=== PATIENT | male | born 1930 | race African-American/Black ===

== ENCOUNTER 2017-09-08 10:51 | Inpatient (IN) ==
[2017-09-08 13:25] LABS: Basophils # 0.1 10*3/uL (0.0-0.2); Basophils % 0.7 % (0.0-0.8); Eosinophils # 0.1 10*3/uL (0.0-0.87); Eosinophils % 0.7 % (0.00-10.9); Hematocrit 58.9 VOL% (42.0-52.0); Hemoglobin 19.7 GM/DL (14.0-18.0); Immature Granulocytes % 0.3 %; Immature Granulocytes Absolute 0.04 #; Lymphocytes % 14.3 % (21.2-54.2); Mean Corpuscular HGB Conc 33.4 GM/DL (32-36); Mean Corpuscular Hemoglobin 27 PG (27-34); Mean Corpuscular Volume 79.4 FL (87-102); Monocytes # 1.3 10*3/uL (0.11-0.8); Monocytes % 9.1 % (1.7-12.7); Neutrophils # 10.2 10*3/uL (1.4-7.4); Neutrophils % 74.9 % (38.7-73.9); Platelet Count 173 T/CUMM (130-400); Red Blood Count 7.42 MC/CUMM (3.8-5.5); Red Cell Distribution Width 18.8 % (9.3-17.3); White Blood Count 13.7 T/CUMM (4-12)
[2017-09-08 13:32] LABS: Apearance,Urine CLEAR (Clear); Bilirubin,Urine Negative (Negative); Blood, Urine Negative (Negative); Glucose,Urine (UA) Negative (Negative); Ketones,Urine Negative (Negative); Nitrite,Urine Negative (Negative); Protein,Urine Negative; RBC,Urine <1 /HPF (0-4); Urine Color Yellow (Yellow); Urine Specific Gravity 1.006 (1.001-1.035); Urine Urobilinogen < 2.0 EU/DL (0.2-1.0); WBC,Urine <1 /HPF (0-6)
[2017-09-08 14:53] LABS: PT Patient Result 81.1 SECS
[2017-09-08 14:54] LABS: INR 8.3
[2017-09-08 15:17] LABS: Albumin 3.2 G/DL (3.4-5.0); Calcium 9.2 MG/DL (8.5-10.1); Osmolality,Calculated 276.4 MOS/KG (273-304); Total Protein 7.6 G/DL (6.4-8.3)
[2017-09-08] MEDS ORDERED: SODIUM CHLORIDE 0.9% 1,000 ML IV SCH ×2 (16:41→20:00)
[2017-09-08] MEDS ORDERED: ONDANSETRON 4 MG/2 ML VIAL IV PRN (16:41)
[2017-09-08] MEDS ORDERED: SODIUM CHLORIDE 0.9% 500 ML IV ONE (16:41)
[2017-09-08] MEDS ORDERED: BISACODYL 5 MG TABLET PO PRN (16:41)
[2017-09-08] MEDS ORDERED: LACTULOSE 20 GM/30 ML UDCUP PO PRN (16:41)
[2017-09-08] MEDS ORDERED: ACETAMINOPHEN 325 MG TABLET PO PRN (16:41)
[2017-09-08] MEDS ORDERED: PHYTONADIONE 10 MG/1 ML AMP SUBCUT ONE (18:00)
[2017-09-08] MEDS: VANCOMYCIN INJ 1,250 MG in SODIUM CHLORIDE 0.45% 250 ML IV SCH (18:02)
[2017-09-08 18:23] LABS: Lactic Acid 2.2 MMOL/L (0.4-2.0)
[2017-09-08 18:29] LABS: Magnesium 1.8 MG/DL (1.8-2.4); Thyroid Stimulating Hormone 0.697 uIU/ml (0.358-3.74)
[2017-09-08] MEDS ORDERED: SODIUM CHLORIDE 0.9% 1,000 ML IV ONE (19:00)
[2017-09-08] MEDS ORDERED: MAGNESIUM SULF RIDER 2 GM in PREMIX 1 EACH IV ONE (19:08)
[2017-09-08] MEDS: PIPERACILLIN/TAZOBACTAM 3,375 MG in SODIUM CHLORIDE 0.9% 100 ML IV SCH (20:45)
[2017-09-08] MEDS: METOPROLOL SUCCINATE XL 50 MG TABLET PO SCH (20:45)
[2017-09-09] MEDS: PIPERACILLIN/TAZOBACTAM 3,375 MG in SODIUM CHLORIDE 0.9% 100 ML IV SCH ×3 (01:58→20:26)
[2017-09-09 03:20] LABS: Basophils # 0.1 10*3/uL (0.0-0.2); Basophils % 0.4 % (0.0-0.8); Eosinophils # 0.2 10*3/uL (0.0-0.87); Eosinophils % 1.3 % (0.00-10.9); Hematocrit 52.1 VOL% (42.0-52.0); Hemoglobin 17.1 GM/DL (14.0-18.0); Immature Granulocytes % 0.4 %; Immature Granulocytes Absolute 0.06 #; Lymphocytes % 13.9 % (21.2-54.2); Mean Corpuscular HGB Conc 32.8 GM/DL (32-36); Mean Corpuscular Hemoglobin 26 PG (27-34); Mean Corpuscular Volume 79.4 FL (87-102); Mean Platelet Volume 10.8 FL (9.6-12.0); Monocytes # 1.4 10*3/uL (0.11-0.8); Neutrophils # 10.4 10*3/uL (1.4-7.4); Platelet Count 212 T/CUMM (130-400); Red Blood Count 6.56 MC/CUMM (3.8-5.5); Red Cell Distribution Width 18.1 % (9.3-17.3); White Blood Count 14.1 T/CUMM (4-12)
[2017-09-09 03:49] LABS: PT Patient Result 54.2 SECS
[2017-09-09 03:50] LABS: INR 5.5
[2017-09-09 04:02] LABS: Calcium 8.5 MG/DL (8.5-10.1); Osmolality,Calculated 278.4 MOS/KG (273-304); Potassium 3.5 MMOL/L (3.5-5.1); Risk Ratio 3.27; VLDL CHOLESTEROL 18.4 MG/DL
[2017-09-09] MEDS: VANCOMYCIN INJ 1,250 MG in SODIUM CHLORIDE 0.45% 250 ML IV SCH ×2 (05:48→17:30)
[2017-09-09] MEDS: METOPROLOL SUCCINATE XL 50 MG TABLET PO SCH (09:33)
[2017-09-09] MEDS: PANTOPRAZOLE 40 MG TABLET PO SCH (09:33)
[2017-09-09] MEDS: ALBUTEROL/IPRATROPIUM 3 ML NEB RESP TX SCH ×4 (10:50→23:47)
[2017-09-09] MEDS: methylPREDNISolone SOD SUC 40 MG/1 ML VIAL IV SCH ×3 (10:54→21:05)
[2017-09-09] MEDS: DIGOXIN 0.125 MG TABLET PO SCH (14:08)
[2017-09-09] MEDS: SKIN HEALING OINT (AQUAPHOR) 50 GM TUBE TOP PRN (15:32)
[2017-09-10] MEDS: PIPERACILLIN/TAZOBACTAM 3,375 MG in SODIUM CHLORIDE 0.9% 100 ML IV SCH ×3 (02:21→18:08)
[2017-09-10] MEDS: ALBUTEROL/IPRATROPIUM 3 ML NEB RESP TX SCH ×6 (03:47→23:21)
[2017-09-10] MEDS: methylPREDNISolone SOD SUC 40 MG/1 ML VIAL IV SCH ×4 (04:56→21:48)
[2017-09-10] MEDS: VANCOMYCIN INJ 1,250 MG in SODIUM CHLORIDE 0.45% 250 ML IV SCH ×2 (06:12→21:48)
[2017-09-10 06:28] LABS: Basophils % 0.1 % (0.0-0.8); Hematocrit 51.5 VOL% (42.0-52.0); Hemoglobin 17.5 GM/DL (14.0-18.0); Immature Granulocytes % 0.7 %; Immature Granulocytes Absolute 0.13 #; Lymphocytes # 0.8 10*3/uL (1.4-4.0); Lymphocytes % 4.2 % (21.2-54.2); Mean Corpuscular Hemoglobin 27 PG (27-34); Mean Corpuscular Volume 79.1 FL (87-102); Mean Platelet Volume 10.7 FL (9.6-12.0); Monocytes # 0.5 10*3/uL (0.11-0.8); Monocytes % 2.7 % (1.7-12.7); Neutrophils # 17.5 10*3/uL (1.4-7.4); Neutrophils % 92.3 % (38.7-73.9); Platelet Count 214 T/CUMM (130-400); Red Blood Count 6.51 MC/CUMM (3.8-5.5); Red Cell Distribution Width 18.3 % (9.3-17.3)
[2017-09-10 06:29] LABS: INR 1.7; PT Patient Result 17.2 SECS
[2017-09-10 06:43] LABS: Osmolality,Calculated 281.4 MOS/KG (273-304); Potassium 3.9 MMOL/L (3.5-5.1)
[2017-09-10 07:44] LABS: Lymphocytes 4 % (20-55); Platelet Estimate Adequate; Segmented Neutrophils 91 % (50-85); Total Cells Counted 100
[2017-09-10] MEDS: PANTOPRAZOLE 40 MG TABLET PO SCH (08:38)
[2017-09-10] MEDS: METOPROLOL SUCCINATE XL 50 MG TABLET PO SCH (08:38)
[2017-09-10] MEDS: SKIN HEALING OINT (AQUAPHOR) 50 GM TUBE TOP PRN (10:04)
[2017-09-10] MEDS: DIGOXIN 0.125 MG TABLET PO SCH (14:18)
[2017-09-10] MEDS ORDERED: ENOXAPARIN 40 MG/0.4 ML SYRINGE SUBCUT SCH (15:00)
[2017-09-10] MEDS: ENOXAPARIN 100 MG/ML SYRINGE SUBCUT SCH (16:39)
[2017-09-11] MEDS: PIPERACILLIN/TAZOBACTAM 3,375 MG in SODIUM CHLORIDE 0.9% 100 ML IV SCH ×2 (02:23→11:46)
[2017-09-11] MEDS: ALBUTEROL/IPRATROPIUM 3 ML NEB RESP TX SCH ×5 (02:34→19:44)
[2017-09-11] MEDS: methylPREDNISolone SOD SUC 40 MG/1 ML VIAL IV SCH ×4 (03:46→21:57)
[2017-09-11 06:53] LABS: Basophils % 0.2 % (0.0-0.8); Hematocrit 50.3 VOL% (42.0-52.0); Hemoglobin 16.9 GM/DL (14.0-18.0); Immature Granulocytes % 0.7 %; Immature Granulocytes Absolute 0.16 #; Lymphocytes # 0.9 10*3/uL (1.4-4.0); Lymphocytes % 3.9 % (21.2-54.2); Mean Corpuscular HGB Conc 33.6 GM/DL (32-36); Mean Corpuscular Hemoglobin 27 PG (27-34); Mean Corpuscular Volume 79.2 FL (87-102); Mean Platelet Volume 10.6 FL (9.6-12.0); Monocytes # 0.8 10*3/uL (0.11-0.8); Monocytes % 3.6 % (1.7-12.7); Neutrophils % 91.6 % (38.7-73.9); Platelet Count 219 T/CUMM (130-400); Red Blood Count 6.35 MC/CUMM (3.8-5.5); Red Cell Distribution Width 18.2 % (9.3-17.3); White Blood Count 21.9 T/CUMM (4-12)
[2017-09-11 07:00] LABS: INR 1.4; PT Patient Result 14.2 SECS
[2017-09-11 07:18] LABS: Giant Platelets Few; Hypochromasia 1+; Lymphocytes 2 % (20-55); Platelet Estimate Adequate; Segmented Neutrophils 96 % (50-85); Total Cells Counted 100
[2017-09-11 07:24] LABS: Calcium 9.1 MG/DL (8.5-10.1); Osmolality,Calculated 280.4 MOS/KG (273-304); Potassium 4.1 MMOL/L (3.5-5.1)
[2017-09-11] MEDS: METOPROLOL SUCCINATE XL 50 MG TABLET PO SCH (09:13)
[2017-09-11] MEDS: PANTOPRAZOLE 40 MG TABLET PO SCH (09:13)
[2017-09-11] MEDS: VANCOMYCIN INJ 1,250 MG in SODIUM CHLORIDE 0.45% 250 ML IV SCH (09:17)
[2017-09-11] MEDS ORDERED: CLINDAMYCIN INJ 900 MG in PREMIX 1 EACH IV ONE (09:19)
[2017-09-11] MEDS: DIGOXIN 0.125 MG TABLET PO SCH (13:34)
[2017-09-11] MEDS ORDERED: BUPIVACAINE 0.25% 50 ML VIAL ONE (14:51)
[2017-09-11] MEDS: ENOXAPARIN 100 MG/ML SYRINGE SUBCUT SCH (15:30)
[2017-09-11] MEDS ORDERED: PHENYLEPHRINE 1 MG/10 ML SYRINGE IV ONE (16:25)
[2017-09-11] MEDS ORDERED: ONDANSETRON 4 MG/2 ML VIAL ONE (16:25)
[2017-09-11] MEDS ORDERED: PROPOFOL 200 MG/20 ML VIAL IV ONE (16:25)
[2017-09-11] MEDS ORDERED: LIDOCAINE 1% 5 ML VIAL ONE (16:25)
[2017-09-11] MEDS ORDERED: SEVOFLURANE 1 UNIT/15 MINUTE INH ONE (17:15)
[2017-09-11] MEDS ORDERED: fentaNYL 100 MCG/2 ML VIAL ONE (17:16)
[2017-09-11] MEDS ORDERED: MIDAZOLAM 2 MG/2 ML VIAL ONE (17:16)
[2017-09-11] MEDS: AMPICILLIN INJ 1,000 MG in SODIUM CHLORIDE 0.9% 50 ML IV SCH ×2 (18:20→21:59)
[2017-09-12] MEDS: ALBUTEROL/IPRATROPIUM 3 ML NEB RESP TX SCH ×7 (00:02→23:20)
[2017-09-12] MEDS: methylPREDNISolone SOD SUC 40 MG/1 ML VIAL IV SCH ×4 (04:02→22:15)
[2017-09-12] MEDS: AMPICILLIN INJ 1,000 MG in SODIUM CHLORIDE 0.9% 50 ML IV SCH ×4 (04:03→22:25)
[2017-09-12 07:47] LABS: Basophils % 0.1 % (0.0-0.8); Hematocrit 53.7 VOL% (42.0-52.0); Hemoglobin 17.7 GM/DL (14.0-18.0); Immature Granulocytes % 0.7 %; Immature Granulocytes Absolute 0.12 #; Lymphocytes # 0.7 10*3/uL (1.4-4.0); Mean Corpuscular Hemoglobin 26 PG (27-34); Mean Corpuscular Volume 79.7 FL (87-102); Mean Platelet Volume 10.3 FL (9.6-12.0); Monocytes % 5.3 % (1.7-12.7); Neutrophils # 16.3 10*3/uL (1.4-7.4); Neutrophils % 89.9 % (38.7-73.9); Platelet Count 244 T/CUMM (130-400); Red Blood Count 6.74 MC/CUMM (3.8-5.5); Red Cell Distribution Width 18.7 % (9.3-17.3); White Blood Count 18.1 T/CUMM (4-12)
[2017-09-12 08:07] LABS: Calcium 8.9 MG/DL (8.5-10.1); Magnesium 2.3 MG/DL (1.8-2.4); Osmolality,Calculated 276.7 MOS/KG (273-304); Potassium 4.4 MMOL/L (3.5-5.1)
[2017-09-12 08:12] LABS: Hypochromasia 1+; Lymphocytes 4 % (20-55); Microcytosis 1+; Platelet Estimate Normal; Segmented Neutrophils 89 % (50-85); Total Cells Counted 100
[2017-09-12 08:42] LABS: INR 1.4; PT Patient Result 14.1 SECS
[2017-09-12] MEDS: METOPROLOL SUCCINATE XL 50 MG TABLET PO SCH (09:28)
[2017-09-12] MEDS: PANTOPRAZOLE 40 MG TABLET PO SCH (09:28)
[2017-09-12] MEDS: DIGOXIN 0.125 MG TABLET PO SCH (13:04)
[2017-09-12] MEDS: ENOXAPARIN 100 MG/ML SYRINGE SUBCUT SCH (15:34)
[2017-09-13] MEDS: ALBUTEROL/IPRATROPIUM 3 ML NEB RESP TX SCH ×6 (03:20→23:18)
[2017-09-13] MEDS: methylPREDNISolone SOD SUC 40 MG/1 ML VIAL IV SCH ×3 (04:45→23:37)
[2017-09-13] MEDS: AMPICILLIN INJ 1,000 MG in SODIUM CHLORIDE 0.9% 50 ML IV SCH (04:48)
[2017-09-13] MEDS: METOPROLOL SUCCINATE XL 50 MG TABLET PO SCH (08:59)
[2017-09-13] MEDS ORDERED: fentaNYL 100 MCG/2 ML VIAL IV ONE (11:03)
[2017-09-13] MEDS ORDERED: MIDAZOLAM 2 MG/2 ML VIAL IV ONE (11:03)
[2017-09-13] MEDS ORDERED: HEPARIN 5,000 UNIT/1 ML VIAL IV ONE (11:03)
[2017-09-13] MEDS: PANTOPRAZOLE 40 MG TABLET PO SCH (11:37)
[2017-09-13] MEDS: DIGOXIN 0.125 MG TABLET PO SCH (12:54)
[2017-09-13] MEDS: ENOXAPARIN 100 MG/ML SYRINGE SUBCUT SCH (15:33)
[2017-09-14] MEDS: ALBUTEROL/IPRATROPIUM 3 ML NEB RESP TX SCH ×5 (02:50→20:06)
[2017-09-14] MEDS: METOPROLOL SUCCINATE XL 50 MG TABLET PO SCH (09:06)
[2017-09-14] MEDS: PANTOPRAZOLE 40 MG TABLET PO SCH (09:06)
[2017-09-14] MEDS ORDERED: HEPARIN/NACL 0.9% 2 UNITS/ML 3,000 ML IV ONE (10:12)
[2017-09-14] MEDS ORDERED: fentaNYL 100 MCG/2 ML VIAL ONE (10:13)
[2017-09-14] MEDS ORDERED: MIDAZOLAM 2 MG/2 ML VIAL ONE (10:13)
[2017-09-14] MEDS ORDERED: HEPARIN 5,000 UNIT/1 ML VIAL ONE (10:23)
[2017-09-14] MEDS: DIGOXIN 0.125 MG TABLET PO SCH (13:23)
[2017-09-14] MEDS: methylPREDNISolone SOD SUC 40 MG/1 ML VIAL IV SCH (13:23)
[2017-09-14] MEDS: ENOXAPARIN 100 MG/ML SYRINGE SUBCUT SCH (16:22)
[2017-09-15] MEDS: ALBUTEROL/IPRATROPIUM 3 ML NEB RESP TX SCH ×3 (01:02→07:50)
[2017-09-15 07:12] LABS: Calcium 8.5 MG/DL (8.5-10.1); Magnesium 2.1 MG/DL (1.8-2.4); Osmolality,Calculated 277.4 MOS/KG (273-304); Potassium 3.6 MMOL/L (3.5-5.1)
[2017-09-15] MEDS ORDERED: methylPREDNISolone SOD SUC 40 MG/1 ML VIAL IV SCH (09:00)
[2017-09-15] MEDS: METOPROLOL SUCCINATE XL 50 MG TABLET PO SCH (09:09)
[2017-09-15] MEDS: PANTOPRAZOLE 40 MG TABLET PO SCH (09:09)
[2017-09-15 09:24] LABS: Basophils % 0.2 % (0.0-0.8); Eosinophils # 0.3 10*3/uL (0.0-0.87); Eosinophils % 1.7 % (0.00-10.9); Immature Granulocytes % 0.7 %; Immature Granulocytes Absolute 0.14 #; Lymphocytes # 1.9 10*3/uL (1.4-4.0); Lymphocytes % 9.9 % (21.2-54.2); Mean Corpuscular HGB Conc 33.3 GM/DL (32-36); Mean Corpuscular Hemoglobin 26 PG (27-34); Mean Corpuscular Volume 78.9 FL (87-102); Mean Platelet Volume 11.4 FL (9.6-12.0); Monocytes # 1.5 10*3/uL (0.11-0.8); Monocytes % 7.8 % (1.7-12.7); NRBC # 0.02 10*3/uL; Neutrophils # 15.4 10*3/uL (1.4-7.4); Neutrophils % 79.7 % (38.7-73.9); Platelet Count 177 T/CUMM (130-400); Red Blood Count 6.08 MC/CUMM (3.8-5.5); White Blood Count 19.3 T/CUMM (4-12)
[2017-09-15 11:12] VITALS: BP 145/77
== END 2017-09-15 12:45 | disposition home health service (06) | DRG 855 ==
LOC: N.ED 10:51 → N.EDINP 15:01 → SUATTDRO 15:01 → N.3E 16:30
PROVIDERS: ADMIT Internal Medicine; ATTEND Internal Medicine

== ENCOUNTER 2017-10-08 16:46 | Inpatient (IN) ==
[2017-10-08] MEDS ORDERED: SODIUM CHLORIDE 0.9% 500 ML IV STA (17:17)
[2017-10-08] MEDS ORDERED: ASPIRIN 325 MG TABLET PO STA (17:17)
[2017-10-08] MEDS ORDERED: CLINDAMYCIN INJ 900 MG in PREMIX 1 EACH IV STA (17:17)
[2017-10-08] MEDS ORDERED: CLINDAMYCIN INJ 50 ML IV ONE (18:20)
[2017-10-08 18:28] LABS: Basophils # 0.1 10*3/uL (0.0-0.2); Basophils % 0.2 % (0.0-0.8); Eosinophils % 0.1 % (0.00-10.9); Hematocrit 42.6 VOL% (42.0-52.0); Hemoglobin 14.1 GM/DL (14.0-18.0); Lymphocytes # 0.7 10*3/uL (1.4-4.0); Mean Corpuscular HGB Conc 33.1 GM/DL (32-36); Mean Corpuscular Hemoglobin 27 PG (27-34); Mean Corpuscular Volume 81.1 FL (87-102); Mean Platelet Volume 10.1 FL (9.6-12.0); Monocytes # 0.7 10*3/uL (0.11-0.8); Monocytes % 2.9 % (1.7-12.7); NRBC # 0.02 10*3/uL; Neutrophils # 22.6 10*3/uL (1.4-7.4); Neutrophils % 91.8 % (38.7-73.9); Platelet Count 259 T/CUMM (130-400); Red Blood Count 5.25 MC/CUMM (3.8-5.5); Red Cell Distribution Width 18.6 % (9.3-17.3); White Blood Count 24.6 T/CUMM (4-12)
[2017-10-08 18:50] LABS: PT Patient Result 68.3 SECS; Partial Thromboplastin Time 43.6 SECS (0-40)
[2017-10-08 18:51] LABS: INR 6.9
[2017-10-08 19:01] LABS: Band Neutrophils 6 % (0-10); Lymphocytes 4 % (20-55); Segmented Neutrophils 89 % (50-85); Total Cells Counted 100
[2017-10-08 19:02] LABS: Platelet Estimate Normal
[2017-10-08 19:03] LABS: Alanine Aminotransferase 19 U/L (16-61); Albumin 2.7 G/DL (3.4-5.0); Alkaline Phosphatase 139 U/L (45-117); Aspartate Amino Transferase 46 U/L (0-37); Blood Urea Nitrogen 11 MG/DL (7-18); Calcium 8.2 MG/DL (8.5-10.1); Glucose 77 MG/DL (74-106); Osmolality,Calculated 274.5 MOS/KG (273-304); Potassium 3.3 MMOL/L (3.5-5.1); Sodium 139 MMOL/L (136-145)
[2017-10-08 19:04] LABS: Troponin I Only 0.178 NG/ML (0.00-0.045)
[2017-10-08 20:18] LABS: Apearance,Urine CLEAR (Clear); Bilirubin,Urine Negative (Negative); Blood, Urine Moderate mg/dL (Negative); Glucose,Urine (UA) Negative (Negative); Ketones,Urine Negative (Negative); Mucus,Urine Occasional /LPF (Occasional); Nitrite,Urine Negative (Negative); Protein,Urine 100 MG/DL; RBC,Urine 6 /HPF (0-4); Squamous Epithelial Cell,Urine Occasional /HPF (0-10); Urine Color Yellow (Yellow); Urine Specific Gravity 1.012 (1.001-1.035); WBC,Urine 4 /HPF (0-6)
[2017-10-08 20:24] LABS: Barbiturates Screen,Urine Negative (Negative); Benzodiazepines Screen,Urine Negative (Negative); Cannabinoid Screen,Urine Negative (Negative); Opiate Screen,Urine Negative (Negative); Phencyclidine Screen,Urine Negative (Negative)
[2017-10-08] MEDS ORDERED: ALBUTEROL 2.5 MG/3 ML NEB RESP TX ONE (22:42)
[2017-10-08] MEDS ORDERED: NICOTINE 21 MG/24 HR PATCH TRANSDERM PRN (22:42)
[2017-10-08] MEDS ORDERED: ONDANSETRON 4 MG/2 ML VIAL IV PRN (22:42)
[2017-10-08] MEDS ORDERED: POTASSIUM CHLORIDE 20 MEQ TABLET PO ONE (22:42)
[2017-10-08] MEDS ORDERED: methylPREDNISolone SOD SUC 125 MG/2 ML VIAL IV ONE (22:42)
[2017-10-08] MEDS ORDERED: ALBUTEROL 2.5 MG/3 ML NEB RESP TX PRN (22:42)
[2017-10-08] MEDS: LEVOFLOXACIN INJ 750 MG in PREMIX 1 EACH IV SCH (23:51)
[2017-10-08] MEDS: SODIUM CHLORIDE 0.9% 1,000 ML IV SCH (23:51)
[2017-10-08 23:59] LABS: Magnesium 1.6 MG/DL (1.8-2.4); Risk Ratio 2.76; VLDL CHOLESTEROL 21.2 MG/DL
[2017-10-09] MEDS: ALBUTEROL 2.5 MG/3 ML NEB RESP TX SCH ×6 (00:43→20:20)
[2017-10-09] MEDS: methylPREDNISolone SOD SUC 40 MG/1 ML VIAL IV SCH ×4 (05:07→22:00)
[2017-10-09 07:45] LABS: PT Patient Result 62.2 SECS
[2017-10-09 07:47] LABS: INR 6.3
[2017-10-09 07:57] LABS: Calcium 8.4 MG/DL (8.5-10.1); Osmolality,Calculated 276.5 MOS/KG (273-304); Potassium 3.9 MMOL/L (3.5-5.1)
[2017-10-09] MEDS ORDERED: PANTOPRAZOLE 40 MG VIAL IV SCH (09:00)
[2017-10-09] MEDS: VANCOMYCIN INJ 1,500 MG in SODIUM CHLORIDE 0.9% 500 ML IV SCH ×2 (09:41→21:20)
[2017-10-09] MEDS: CLORAZEPATE 7.5 MG TABLET PO PRN ×2 (09:48→21:20)
[2017-10-09 11:40] LABS: Troponin I Only 0.119 NG/ML (0.00-0.045)
[2017-10-09] MEDS ORDERED: PROPOFOL 200 MG/20 ML VIAL IV ONE (14:07)
[2017-10-09] MEDS ORDERED: MIDAZOLAM 2 MG/2 ML VIAL ONE (14:07)
[2017-10-09] MEDS ORDERED: SODIUM CHLORIDE 0.9% 100 ML IV ONE (14:08)
[2017-10-09] MEDS ORDERED: KETAMINE 500 MG/10 ML VIAL ONE (14:08)
[2017-10-09] MEDS ORDERED: PHYTONADIONE 10 MG/1 ML AMP IV ONE (19:04)
[2017-10-09] MEDS: SODIUM CHLORIDE 0.9% 1,000 ML IV SCH ×2 (19:24→21:18)
[2017-10-09] MEDS ORDERED: PHYTONADIONE INJ 10 MG in SODIUM CHLORIDE 0.9% 50 ML IV ONE (19:30)
[2017-10-09] MEDS: MORPHINE 2 MG/1 ML SYRINGE IV PRN (22:01)
[2017-10-10 00:56] LABS: Basophils % 0.1 % (0.0-0.8); Hematocrit 35.9 VOL% (42.0-52.0); Hemoglobin 11.7 GM/DL (14.0-18.0); Immature Granulocytes % 1.6 %; Immature Granulocytes Absolute 0.45 #; Lymphocytes # 1.2 10*3/uL (1.4-4.0); Lymphocytes % 4.3 % (21.2-54.2); Mean Corpuscular HGB Conc 32.6 GM/DL (32-36); Mean Corpuscular Hemoglobin 26 PG (27-34); Mean Corpuscular Volume 80.9 FL (87-102); Mean Platelet Volume 10.7 FL (9.6-12.0); Monocytes # 1.5 10*3/uL (0.11-0.8); Monocytes % 5.4 % (1.7-12.7); NRBC # 0.02 10*3/uL; Neutrophils # 25.1 10*3/uL (1.4-7.4); Neutrophils % 88.6 % (38.7-73.9); Platelet Count 259 T/CUMM (130-400); Red Blood Count 4.44 MC/CUMM (3.8-5.5); Red Cell Distribution Width 18.5 % (9.3-17.3); White Blood Count 28.4 T/CUMM (4-12)
[2017-10-10 01:06] LABS: Calcium 8.2 MG/DL (8.5-10.1); Magnesium 1.7 MG/DL (1.8-2.4); Osmolality,Calculated 281.4 MOS/KG (273-304); Potassium 3.6 MMOL/L (3.5-5.1)
[2017-10-10 01:15] LABS: Calcium 8.4 MG/DL (8.5-10.1); Osmolality,Calculated 279.5 MOS/KG (273-304); Potassium 3.6 MMOL/L (3.5-5.1)
[2017-10-10] MEDS: LEVOFLOXACIN INJ 750 MG in PREMIX 1 EACH IV SCH (01:26)
[2017-10-10] MEDS: ALBUTEROL 2.5 MG/3 ML NEB RESP TX SCH ×7 (01:28→23:38)
[2017-10-10 01:45] LABS: Partial Thromboplastin Time 33.6 SECS (0-40)
[2017-10-10 01:50] LABS: INR 2.2; PT Patient Result 22.6 SECS
[2017-10-10 02:04] LABS: Band Neutrophils 1 % (0-10); Lymphocytes 4 % (20-55); Platelet Estimate Adequate; Segmented Neutrophils 92 % (50-85); Total Cells Counted 100
[2017-10-10 02:05] LABS: Target Cells Slight
[2017-10-10] MEDS: methylPREDNISolone SOD SUC 40 MG/1 ML VIAL IV SCH ×4 (05:24→16:12)
[2017-10-10] MEDS: VANCOMYCIN INJ 1,500 MG in SODIUM CHLORIDE 0.9% 500 ML IV SCH (09:20)
[2017-10-10] MEDS ORDERED: PHYTONADIONE 10 MG/1 ML AMP IV ONE (11:09)
[2017-10-10] MEDS: PIPERACILLIN/TAZOBACTAM 3,375 MG in SODIUM CHLORIDE 0.9% 100 ML IV SCH (16:12)
[2017-10-11] MEDS: methylPREDNISolone SOD SUC 40 MG/1 ML VIAL IV SCH ×3 (00:18→11:24)
[2017-10-11] MEDS: SODIUM CHLORIDE 0.9% 1,000 ML IV SCH ×3 (00:19→11:31)
[2017-10-11] MEDS: VANCOMYCIN INJ 1,500 MG in SODIUM CHLORIDE 0.9% 500 ML IV SCH ×2 (02:13→15:13)
[2017-10-11] MEDS: MORPHINE 2 MG/1 ML SYRINGE IV PRN ×2 (02:13→09:24)
[2017-10-11] MEDS: ALBUTEROL 2.5 MG/3 ML NEB RESP TX SCH ×3 (04:05→11:16)
[2017-10-11] MEDS: PIPERACILLIN/TAZOBACTAM 3,375 MG in SODIUM CHLORIDE 0.9% 100 ML IV SCH ×2 (04:59→13:41)
[2017-10-11 07:10] LABS: Basophils % 0.1 % (0.0-0.8); Hematocrit 33.6 VOL% (42.0-52.0); Immature Granulocytes % 1.2 %; Immature Granulocytes Absolute 0.25 #; Lymphocytes # 1.8 10*3/uL (1.4-4.0); Lymphocytes % 8.3 % (21.2-54.2); Mean Corpuscular HGB Conc 32.7 GM/DL (32-36); Mean Corpuscular Hemoglobin 27 PG (27-34); Mean Corpuscular Volume 81.2 FL (87-102); Mean Platelet Volume 10.7 FL (9.6-12.0); Monocytes # 2.3 10*3/uL (0.11-0.8); Monocytes % 10.6 % (1.7-12.7); NRBC # 0.04 10*3/uL; Neutrophils # 17.1 10*3/uL (1.4-7.4); Neutrophils % 79.8 % (38.7-73.9); Platelet Count 230 T/CUMM (130-400); Red Blood Count 4.14 MC/CUMM (3.8-5.5); Red Cell Distribution Width 18.3 % (9.3-17.3); White Blood Count 21.5 T/CUMM (4-12)
[2017-10-11 07:29] LABS: Calcium 8.6 MG/DL (8.5-10.1); Osmolality,Calculated 279.3 MOS/KG (273-304); Potassium 3.3 MMOL/L (3.5-5.1)
[2017-10-11 07:30] LABS: Calcium 8.3 MG/DL (8.5-10.1); Osmolality,Calculated 280.3 MOS/KG (273-304); Potassium 3.3 MMOL/L (3.5-5.1)
[2017-10-11 08:47] LABS: ABG Base Excess 6.2 MMOL/L (-2.5-2.5); ABG HCO3 30.1 MMOL/L (20-26); ABG PCO2 46.9 MM HG (35-48); ABG PH 7.435 (7.35-7.45); ABG PO2 68.5 MM HG (80-95); ABG TCO2 28.1 MMOL/L (23-27)
[2017-10-11 08:53] LABS: Lymphocytes 6 % (20-55); Segmented Neutrophils 86 % (50-85); Total Cells Counted 100
[2017-10-11 08:54] LABS: Hypochromasia 1+; Microcytosis 1+
[2017-10-11 08:55] LABS: Platelet Estimate Normal
[2017-10-11 09:39] LABS: INR 1.1; PT Patient Result 11.7 SECS; Partial Thromboplastin Time 27.3 SECS (0-40)
[2017-10-11 11:49] VITALS: BP 136/72
[2017-10-11] MEDS ORDERED: FUROSEMIDE 40 MG/4 ML VIAL IV ONE (11:59)
== END 2017-10-11 14:18 | DRG 167 ==
LOC: EDBD → EDUNIT# → N.ED 16:46 → N.EDINP 19:21 → N.TELEN 20:14 → N.3E 10-11 01:48
PROVIDERS: ADMIT Internal Medicine Geriatric Medicine; ATTEND Internal Medicine Geriatric Medicine

== ENCOUNTER 2017-10-24 05:41 | Inpatient (IN) ==
[2017-10-24] MEDS ORDERED: CLINDAMYCIN INJ 900 MG in PREMIX 1 EACH IV ONE (06:41)
[2017-10-24] MEDS ORDERED: guaiFENesin/DM ER 600-30 MG TABLET PO PRN (09:12)
[2017-10-24] MEDS ORDERED: ONDANSETRON 4 MG/2 ML VIAL IV PRN (09:12)
[2017-10-24] MEDS ORDERED: NICOTINE 21 MG/24 HR PATCH TRANSDERM PRN (09:12)
[2017-10-24] MEDS ORDERED: DOCUSATE SODIUM 100 MG CAPSULE PO PRN (09:12)
[2017-10-24] MEDS ORDERED: PROMETHAZINE 25 MG/1 ML VIAL IM PRN (09:12)
[2017-10-24] MEDS ORDERED: diphenhydrAMINE CAP 25 MG CAPSULE PO PRN (09:12)
[2017-10-24] MEDS ORDERED: ACETAMINOPHEN 325 MG TABLET PO PRN ×3 (09:12→14:56)
[2017-10-24] MEDS ORDERED: SODIUM CHLORIDE 0.9% 1,000 ML IV ONE (10:15)
[2017-10-24 12:25] LABS: Apearance,Urine Slightly Hazy (Clear); Bilirubin,Urine Negative (Negative); Blood, Urine Negative (Negative); Glucose,Urine (UA) Negative (Negative); Hyaline Casts,Urine 12 /LPF (0-3); Ketones,Urine Negative (Negative); Mucus,Urine Occasional /LPF (Occasional); Nitrite,Urine Negative (Negative); Protein,Urine Negative; RBC,Urine 1 /HPF (0-4); Squamous Epithelial Cell,Urine Occasional /HPF (0-10); Urine Color Yellow (Yellow); Urine Specific Gravity 1.014 (1.001-1.035); Urine Urobilinogen < 2.0 EU/DL (0.2-1.0); WBC,Urine 1 /HPF (0-6)
[2017-10-24] MEDS: PANTOPRAZOLE 40 MG VIAL IV SCH (13:02)
[2017-10-24 13:03] LABS: Basophils # 0.1 10*3/uL (0.0-0.2); Basophils % 0.6 % (0.0-0.8); Eosinophils # 0.1 10*3/uL (0.0-0.87); Eosinophils % 0.9 % (0.00-10.9); Hematocrit 47.7 VOL% (42.0-52.0); Hemoglobin 15.6 GM/DL (14.0-18.0); Immature Granulocytes % 1.1 %; Immature Granulocytes Absolute 0.15 #; Lymphocytes # 1.8 10*3/uL (1.4-4.0); Lymphocytes % 13.3 % (21.2-54.2); Mean Corpuscular HGB Conc 32.7 GM/DL (32-36); Mean Corpuscular Hemoglobin 27 PG (27-34); Mean Corpuscular Volume 81.1 FL (87-102); Mean Platelet Volume 10.7 FL (9.6-12.0); Monocytes # 1.4 10*3/uL (0.11-0.8); Monocytes % 9.9 % (1.7-12.7); Neutrophils # 10.3 10*3/uL (1.4-7.4); Neutrophils % 74.2 % (38.7-73.9); Platelet Count 260 T/CUMM (130-400); Red Blood Count 5.88 MC/CUMM (3.8-5.5); White Blood Count 13.8 T/CUMM (4-12)
[2017-10-24 13:33] LABS: Albumin 3.2 G/DL (3.4-5.0); Bilirubin,Total 1.1 MG/DL (0.2-1.0); Calcium 10.1 MG/DL (8.5-10.1); Osmolality,Calculated 281.4 MOS/KG (273-304); Potassium 3.8 MMOL/L (3.5-5.1); Total Protein 7.7 G/DL (6.4-8.3)
[2017-10-24 13:39] LABS: Thyroid Stimulating Hormone 1.95 uIU/ml (0.358-3.74)
[2017-10-24] MEDS: SODIUM CHLORIDE 0.9% 1,000 ML IV SCH (14:12)
[2017-10-24] MEDS: CLINDAMYCIN INJ 600 MG in PREMIX 1 EACH IV SCH ×2 (14:13→17:54)
[2017-10-24] MEDS ORDERED: [UNRECOGNIZED DRUG - OTHER] PO PRN (14:56)
[2017-10-24] MEDS ORDERED: ALBUTEROL 2.5 MG/3 ML NEB RESP TX PRN (14:56)
[2017-10-24] MEDS ORDERED: CLORAZEPATE 3.75 MG TABLET PO PRN (14:56)
[2017-10-24] MEDS ORDERED: POTASSIUM CHLORIDE 20 MEQ TABLET PO PRN (15:26)
[2017-10-24] MEDS: DIGOXIN 0.125 MG TABLET PO SCH (17:59)
[2017-10-24] MEDS: ASPIRIN CHEW 81 MG TABLET PO SCH (17:59)
[2017-10-24] MEDS: PENTOXIFYLLINE 400 MG TABLET PO SCH (18:02)
[2017-10-24] MEDS ORDERED: ENOXAPARIN 30 MG/0.3 ML SYRINGE SUBCUT SCH (21:00)
[2017-10-25] MEDS: SODIUM CHLORIDE 0.9% 1,000 ML IV SCH ×4 (00:02→21:26)
[2017-10-25] MEDS: CLINDAMYCIN INJ 600 MG in PREMIX 1 EACH IV SCH ×5 (00:03→23:26)
[2017-10-25] MEDS: SKIN HEALING OINT (AQUAPHOR) 50 GM TUBE TOP SCH ×2 (00:20→17:30)
[2017-10-25] MEDS: SODIUM HYPOCHLORITE 0.25% IRRIG 473 ML BOTTLE TOP SCH ×2 (00:20→15:11)
[2017-10-25 08:43] LABS: Basophils # 0.1 10*3/uL (0.0-0.2); Basophils % 0.6 % (0.0-0.8); Eosinophils # 0.4 10*3/uL (0.0-0.87); Eosinophils % 3.1 % (0.00-10.9); Hematocrit 39.2 VOL% (42.0-52.0); Immature Granulocytes Absolute 0.12 #; Lymphocytes # 1.6 10*3/uL (1.4-4.0); Lymphocytes % 13.4 % (21.2-54.2); Mean Corpuscular HGB Conc 33.7 GM/DL (32-36); Mean Corpuscular Hemoglobin 27 PG (27-34); Mean Corpuscular Volume 80.3 FL (87-102); Mean Platelet Volume 11.2 FL (9.6-12.0); Monocytes # 1.2 10*3/uL (0.11-0.8); Monocytes % 10.4 % (1.7-12.7); Neutrophils # 8.4 10*3/uL (1.4-7.4); Neutrophils % 71.5 % (38.7-73.9); Platelet Count 215 T/CUMM (130-400); Red Blood Count 4.88 MC/CUMM (3.8-5.5); Red Cell Distribution Width 17.9 % (9.3-17.3); White Blood Count 11.8 T/CUMM (4-12)
[2017-10-25 08:48] LABS: Hemoglobin 13.2 GM/DL (14.0-18.0)
[2017-10-25] MEDS ORDERED: SODIUM CHLORIDE 0.9% 1,000 ML IV ONE (08:53)
[2017-10-25] MEDS: PENTOXIFYLLINE 400 MG TABLET PO SCH ×3 (09:12→17:36)
[2017-10-25 09:23] LABS: Albumin 2.6 G/DL (3.4-5.0); Bilirubin,Total 1.1 MG/DL (0.2-1.0); Calcium 8.5 MG/DL (8.5-10.1); Osmolality,Calculated 287.5 MOS/KG (273-304); Potassium 3.4 MMOL/L (3.5-5.1); Total Protein 5.8 G/DL (6.4-8.3)
[2017-10-25] MEDS: ASPIRIN CHEW 81 MG TABLET PO SCH (11:43)
[2017-10-25] MEDS: METOPROLOL SUCCINATE XL 50 MG TABLET PO SCH (11:44)
[2017-10-25] MEDS: PANTOPRAZOLE 40 MG VIAL IV SCH (12:47)
[2017-10-25] MEDS: MORPHINE 2 MG/1 ML SYRINGE IV PRN (15:25)
[2017-10-25] MEDS: DIGOXIN 0.125 MG TABLET PO SCH (17:28)
[2017-10-26] MEDS: CLINDAMYCIN INJ 600 MG in PREMIX 1 EACH IV SCH ×2 (05:29→14:32)
[2017-10-26] MEDS: SODIUM CHLORIDE 0.9% 1,000 ML IV SCH ×2 (05:49→14:31)
[2017-10-26 06:39] LABS: Basophils # 0.1 10*3/uL (0.0-0.2); Basophils % 0.6 % (0.0-0.8); Eosinophils # 0.5 10*3/uL (0.0-0.87); Eosinophils % 4.1 % (0.00-10.9); Hematocrit 38.3 VOL% (42.0-52.0); Hemoglobin 12.7 GM/DL (14.0-18.0); Immature Granulocytes % 0.7 %; Immature Granulocytes Absolute 0.09 #; Mean Corpuscular HGB Conc 33.2 GM/DL (32-36); Mean Corpuscular Hemoglobin 27 PG (27-34); Mean Corpuscular Volume 81.3 FL (87-102); Mean Platelet Volume 10.8 FL (9.6-12.0); Monocytes # 1.3 10*3/uL (0.11-0.8); Monocytes % 10.2 % (1.7-12.7); Neutrophils # 8.6 10*3/uL (1.4-7.4); Neutrophils % 68.4 % (38.7-73.9); Platelet Count 193 T/CUMM (130-400); Red Blood Count 4.71 MC/CUMM (3.8-5.5); Red Cell Distribution Width 17.7 % (9.3-17.3); White Blood Count 12.6 T/CUMM (4-12)
[2017-10-26 07:07] LABS: Calcium 8.8 MG/DL (8.5-10.1); Osmolality,Calculated 282.4 MOS/KG (273-304); Potassium 3.4 MMOL/L (3.5-5.1)
[2017-10-26] MEDS: PENTOXIFYLLINE 400 MG TABLET PO SCH ×2 (09:16→14:32)
[2017-10-26] MEDS: PANTOPRAZOLE 40 MG VIAL IV SCH (09:17)
[2017-10-26] MEDS: ASPIRIN CHEW 81 MG TABLET PO SCH (09:17)
[2017-10-26] MEDS: METOPROLOL SUCCINATE XL 50 MG TABLET PO SCH (09:17)
[2017-10-26 11:40] VITALS: BP 116/50
[2017-10-26] MEDS: MORPHINE 2 MG/1 ML SYRINGE IV PRN (12:09)
[2017-10-26] MEDS: SODIUM HYPOCHLORITE 0.25% IRRIG 473 ML BOTTLE TOP SCH (14:31)
[2017-10-26] MEDS: SKIN HEALING OINT (AQUAPHOR) 50 GM TUBE TOP SCH (14:31)
== END 2017-10-26 14:30 | disposition hospice, home (50) | DRG 539 ==
LOC: N.OR 05:41 → N.SDSINP 05:44 → N.3E 09:12 → SUATTDRO 09:12 → N.3E 11:07
PROVIDERS: ADMIT Surgery; ATTEND Internal Medicine

== ENCOUNTER 2017-11-10 05:54 | Inpatient (IN) ==
[2017-11-10] MEDS ORDERED: CLINDAMYCIN INJ 900 MG in PREMIX 1 EACH IV ONE (06:00)
[2017-11-10] MEDS ORDERED: CLINDAMYCIN INJ 50 ML IV ONE (06:24)
[2017-11-10] MEDS: LACTATED RINGERS 1,000 ML IV SCH ×4 (06:45→23:48)
[2017-11-10] MEDS ORDERED: PROPOFOL 200 MG/20 ML VIAL IV ONE (08:48)
[2017-11-10] MEDS ORDERED: fentaNYL 100 MCG/2 ML VIAL ONE (08:48)
[2017-11-10] MEDS ORDERED: ePHEDrine 50 MG/ML AMP ONE (08:49)
[2017-11-10] MEDS ORDERED: ONDANSETRON 4 MG/2 ML VIAL ONE ×2 (08:49→11:14)
[2017-11-10] MEDS ORDERED: ONDANSETRON 4 MG/2 ML VIAL IV PRN ×2 (11:11→15:04)
[2017-11-10] MEDS ORDERED: HYDROmorphone 2 MG/1 ML VIAL ONE (11:14)
[2017-11-10] MEDS: HYDROmorphone 2 MG/1 ML VIAL IV PRN ×2 (11:16→11:27)
[2017-11-10] MEDS ORDERED: PROMETHAZINE 25 MG/1 ML VIAL IM PRN (15:04)
[2017-11-10] MEDS ORDERED: DEXTROSE 50% 25 GM/50 ML VIAL IV PRN (15:04)
[2017-11-10] MEDS ORDERED: HYDROPHILIC TOP SCH (15:04)
[2017-11-10] MEDS ORDERED: GLUCAGON 1 MG VIAL IM PRN (15:04)
[2017-11-10] MEDS: ASPIRIN CHEW 81 MG TABLET PO SCH (15:36)
[2017-11-10] MEDS: BACITRACIN OINT 28.35 GM TUBE TOP SCH (15:37)
[2017-11-10] MEDS: PANTOPRAZOLE 40 MG VIAL IV SCH (15:38)
[2017-11-10] MEDS: KETOROLAC 15 MG/1 ML VIAL IV SCH ×2 (15:38→20:50)
[2017-11-10] MEDS: PENTOXIFYLLINE 400 MG TABLET PO SCH ×2 (15:38→15:50)
[2017-11-10] MEDS: DIGOXIN 0.125 MG TABLET PO SCH (15:38)
[2017-11-10] MEDS: METOPROLOL SUCCINATE XL 50 MG TABLET PO SCH (15:38)
[2017-11-10] MEDS: INSULIN REGULAR 100 UNIT/ML SUBCUT SCH ×3 (15:52→20:48)
[2017-11-10] MEDS: CLORAZEPATE 7.5 MG TABLET PO SCH (20:49)
[2017-11-11] MEDS: KETOROLAC 15 MG/1 ML VIAL IV SCH ×4 (02:30→21:02)
[2017-11-11 04:36] LABS: Basophils # 0.1 10*3/uL (0.0-0.2); Basophils % 0.5 % (0.0-0.8); Eosinophils # 0.4 10*3/uL (0.0-0.87); Eosinophils % 3.5 % (0.00-10.9); Hematocrit 35.4 VOL% (42.0-52.0); Hemoglobin 11.3 GM/DL (14.0-18.0); Immature Granulocytes % 0.4 %; Immature Granulocytes Absolute 0.05 #; Lymphocytes # 2.3 10*3/uL (1.4-4.0); Lymphocytes % 18.5 % (21.2-54.2); Mean Corpuscular HGB Conc 31.9 GM/DL (32-36); Mean Corpuscular Hemoglobin 26 PG (27-34); Mean Corpuscular Volume 81.8 FL (87-102); Mean Platelet Volume 10.7 FL (9.6-12.0); Monocytes # 1.4 10*3/uL (0.11-0.8); Monocytes % 11.3 % (1.7-12.7); Neutrophils # 8.2 10*3/uL (1.4-7.4); Neutrophils % 65.8 % (38.7-73.9); Platelet Count 225 T/CUMM (130-400); Red Blood Count 4.33 MC/CUMM (3.8-5.5); Red Cell Distribution Width 17.2 % (9.3-17.3); White Blood Count 12.5 T/CUMM (4-12)
[2017-11-11 05:04] LABS: Calcium 8.3 MG/DL (8.5-10.1); Osmolality,Calculated 274.5 MOS/KG (273-304); Potassium 4.5 MMOL/L (3.5-5.1)
[2017-11-11] MEDS: LACTATED RINGERS 1,000 ML IV SCH ×3 (07:50→22:50)
[2017-11-11] MEDS: DIGOXIN 0.125 MG TABLET PO SCH (09:31)
[2017-11-11] MEDS: INSULIN REGULAR 100 UNIT/ML SUBCUT SCH ×4 (09:31→21:00)
[2017-11-11] MEDS: METOPROLOL SUCCINATE XL 50 MG TABLET PO SCH (09:32)
[2017-11-11] MEDS: ASPIRIN CHEW 81 MG TABLET PO SCH (09:32)
[2017-11-11] MEDS: PANTOPRAZOLE 40 MG VIAL IV SCH (09:32)
[2017-11-11] MEDS: PENTOXIFYLLINE 400 MG TABLET PO SCH ×3 (09:32→17:20)
[2017-11-11] MEDS: BACITRACIN OINT 28.35 GM TUBE TOP SCH (12:16)
[2017-11-11] MEDS: CLORAZEPATE 7.5 MG TABLET PO SCH (21:01)
[2017-11-12] MEDS: KETOROLAC 15 MG/1 ML VIAL IV SCH ×4 (02:22→20:48)
[2017-11-12 05:34] LABS: Basophils # 0.1 10*3/uL (0.0-0.2); Basophils % 0.6 % (0.0-0.8); Eosinophils # 0.4 10*3/uL (0.0-0.87); Eosinophils % 4.3 % (0.00-10.9); Hematocrit 32.2 VOL% (42.0-52.0); Hemoglobin 10.8 GM/DL (14.0-18.0); Immature Granulocytes % 0.5 %; Immature Granulocytes Absolute 0.05 #; Lymphocytes # 1.7 10*3/uL (1.4-4.0); Lymphocytes % 17.2 % (21.2-54.2); Mean Corpuscular HGB Conc 33.5 GM/DL (32-36); Mean Corpuscular Hemoglobin 27 PG (27-34); Mean Corpuscular Volume 79.7 FL (87-102); Mean Platelet Volume 10.9 FL (9.6-12.0); Monocytes # 1.1 10*3/uL (0.11-0.8); Monocytes % 11.3 % (1.7-12.7); Neutrophils # 6.5 10*3/uL (1.4-7.4); Neutrophils % 66.1 % (38.7-73.9); Platelet Count 210 T/CUMM (130-400); Red Blood Count 4.04 MC/CUMM (3.8-5.5); Red Cell Distribution Width 17.4 % (9.3-17.3); White Blood Count 9.9 T/CUMM (4-12)
[2017-11-12] MEDS: LACTATED RINGERS 1,000 ML IV SCH ×3 (06:10→22:58)
[2017-11-12 06:13] LABS: Calcium 8.2 MG/DL (8.5-10.1); Osmolality,Calculated 273.5 MOS/KG (273-304)
[2017-11-12] MEDS: METOPROLOL SUCCINATE XL 50 MG TABLET PO SCH (09:54)
[2017-11-12] MEDS: DIGOXIN 0.125 MG TABLET PO SCH (09:54)
[2017-11-12] MEDS: PANTOPRAZOLE 40 MG VIAL IV SCH (09:54)
[2017-11-12] MEDS: PENTOXIFYLLINE 400 MG TABLET PO SCH ×3 (09:54→16:43)
[2017-11-12] MEDS: ASPIRIN CHEW 81 MG TABLET PO SCH (09:54)
[2017-11-12] MEDS: BACITRACIN OINT 28.35 GM TUBE TOP SCH (09:55)
[2017-11-12] MEDS: INSULIN REGULAR 100 UNIT/ML SUBCUT SCH ×4 (09:55→20:45)
[2017-11-12] MEDS: CLORAZEPATE 7.5 MG TABLET PO SCH (20:47)
[2017-11-13] MEDS: KETOROLAC 15 MG/1 ML VIAL IV SCH ×2 (02:13→08:40)
[2017-11-13] MEDS: LACTATED RINGERS 1,000 ML IV SCH ×4 (06:49→22:18)
[2017-11-13] MEDS: ASPIRIN CHEW 81 MG TABLET PO SCH (08:39)
[2017-11-13] MEDS: PENTOXIFYLLINE 400 MG TABLET PO SCH ×3 (08:39→17:13)
[2017-11-13] MEDS: DIGOXIN 0.125 MG TABLET PO SCH (08:39)
[2017-11-13] MEDS: METOPROLOL SUCCINATE XL 50 MG TABLET PO SCH (08:39)
[2017-11-13] MEDS: PANTOPRAZOLE 40 MG VIAL IV SCH (08:39)
[2017-11-13] MEDS: BACITRACIN OINT 28.35 GM TUBE TOP SCH (08:40)
[2017-11-13] MEDS: INSULIN REGULAR 100 UNIT/ML SUBCUT SCH ×4 (08:40→21:30)
[2017-11-13] MEDS: MORPHINE 2 MG/1 ML SYRINGE IV PRN (21:34)
[2017-11-13] MEDS: CLORAZEPATE 7.5 MG TABLET PO SCH (21:35)
[2017-11-14 04:42] LABS: Basophils # 0.1 10*3/uL (0.0-0.2); Basophils % 0.7 % (0.0-0.8); Eosinophils # 0.5 10*3/uL (0.0-0.87); Eosinophils % 4.8 % (0.00-10.9); Hematocrit 34.1 VOL% (42.0-52.0); Hemoglobin 11.2 GM/DL (14.0-18.0); Immature Granulocytes % 0.5 %; Immature Granulocytes Absolute 0.05 #; Lymphocytes # 2.1 10*3/uL (1.4-4.0); Lymphocytes % 21.3 % (21.2-54.2); Mean Corpuscular HGB Conc 32.8 GM/DL (32-36); Mean Corpuscular Hemoglobin 27 PG (27-34); Mean Corpuscular Volume 81.6 FL (87-102); Mean Platelet Volume 11.3 FL (9.6-12.0); Monocytes % 10.1 % (1.7-12.7); Neutrophils % 62.6 % (38.7-73.9); Platelet Count 228 T/CUMM (130-400); Red Blood Count 4.18 MC/CUMM (3.8-5.5); Red Cell Distribution Width 17.2 % (9.3-17.3); White Blood Count 9.6 T/CUMM (4-12)
[2017-11-14 05:10] LABS: Calcium 8.5 MG/DL (8.5-10.1); Magnesium 1.5 MG/DL (1.8-2.4); Potassium 4.1 MMOL/L (3.5-5.1)
[2017-11-14] MEDS: LACTATED RINGERS 1,000 ML IV SCH (06:38)
[2017-11-14] MEDS ORDERED: ALBUTEROL/IPRATROPIUM 3 ML NEB RESP TX PRN (07:44)
[2017-11-14] MEDS: INSULIN REGULAR 100 UNIT/ML SUBCUT SCH ×4 (08:10→21:04)
[2017-11-14] MEDS: PANTOPRAZOLE 40 MG VIAL IV SCH (08:53)
[2017-11-14] MEDS: METOPROLOL SUCCINATE XL 50 MG TABLET PO SCH (08:53)
[2017-11-14] MEDS: DIGOXIN 0.125 MG TABLET PO SCH (08:53)
[2017-11-14] MEDS: ASPIRIN CHEW 81 MG TABLET PO SCH (08:53)
[2017-11-14] MEDS: PENTOXIFYLLINE 400 MG TABLET PO SCH ×3 (08:53→16:26)
[2017-11-14] MEDS: BACITRACIN OINT 28.35 GM TUBE TOP SCH (08:53)
[2017-11-14] MEDS ORDERED: SKIN HEALING OINT (AQUAPHOR) 50 GM TUBE TOP PRN (14:28)
[2017-11-14] MEDS: ENOXAPARIN 40 MG/0.4 ML SYRINGE SUBCUT SCH (21:03)
[2017-11-14] MEDS: CLORAZEPATE 7.5 MG TABLET PO SCH (21:03)
[2017-11-15] MEDS: INSULIN REGULAR 100 UNIT/ML SUBCUT SCH ×4 (10:25→22:21)
[2017-11-15] MEDS: ASPIRIN CHEW 81 MG TABLET PO SCH (11:53)
[2017-11-15] MEDS: MORPHINE 2 MG/1 ML SYRINGE IV PRN (11:55)
[2017-11-15 13:00] LABS: Basophils # 0.1 10*3/uL (0.0-0.2); Basophils % 0.6 % (0.0-0.8); Eosinophils # 0.3 10*3/uL (0.0-0.87); Eosinophils % 3.5 % (0.00-10.9); Hematocrit 35.6 VOL% (42.0-52.0); Hemoglobin 11.7 GM/DL (14.0-18.0); Immature Granulocytes % 0.6 %; Immature Granulocytes Absolute 0.05 #; Lymphocytes # 1.3 10*3/uL (1.4-4.0); Lymphocytes % 14.7 % (21.2-54.2); Mean Corpuscular HGB Conc 32.9 GM/DL (32-36); Mean Corpuscular Hemoglobin 27 PG (27-34); Mean Corpuscular Volume 81.3 FL (87-102); Mean Platelet Volume 10.7 FL (9.6-12.0); Monocytes # 0.7 10*3/uL (0.11-0.8); Neutrophils # 6.4 10*3/uL (1.4-7.4); Neutrophils % 72.6 % (38.7-73.9); Platelet Count 237 T/CUMM (130-400); Red Blood Count 4.38 MC/CUMM (3.8-5.5); Red Cell Distribution Width 17.2 % (9.3-17.3); White Blood Count 8.8 T/CUMM (4-12)
[2017-11-15 13:28] LABS: Alanine Aminotransferase 12 U/L (16-61); Alkaline Phosphatase 75 U/L (45-117); Aspartate Amino Transferase 22 U/L (0-37); Blood Urea Nitrogen 8 MG/DL (7-18); Calcium 8.4 MG/DL (8.5-10.1); Glucose 98 MG/DL (74-106); Osmolality,Calculated 276.4 MOS/KG (273-304); Potassium 3.8 MMOL/L (3.5-5.1); Sodium 140 MMOL/L (136-145); Total Protein 5.3 G/DL (6.4-8.3); Troponin I Only 0.017 NG/ML (0.00-0.045)
[2017-11-15 14:37] LABS: ABG Base Excess 7.3 MMOL/L (-2.5-2.5); ABG HCO3 31.2 MMOL/L (20-26); ABG Oxygen Saturation 99.4 % (95-100); ABG PCO2 48.9 MM HG (35-48); ABG PH 7.435 (7.35-7.45); ABG TCO2 29.3 MMOL/L (23-27); Allen Test Positive
[2017-11-15] MEDS ORDERED: ACETAMINOPHEN 325 MG TABLET PO PRN (14:46)
[2017-11-15] MEDS ORDERED: FUROSEMIDE 40 MG/4 ML VIAL IV ONE (16:08)
[2017-11-15] MEDS: PENTOXIFYLLINE 400 MG TABLET PO SCH ×3 (16:20→20:42)
[2017-11-15 20:08] LABS: Apearance,Urine CLEAR (Clear); Bilirubin,Urine Negative (Negative); Blood, Urine Small mg/dL (Negative); Glucose,Urine (UA) Negative (Negative); Ketones,Urine 5 mg/dL (Negative); Mucus,Urine Occasional /LPF (Occasional); Nitrite,Urine Negative (Negative); Protein,Urine Negative; RBC,Urine 6 /HPF (0-4); Squamous Epithelial Cell,Urine Occasional /HPF (0-10); Urine Color Yellow (Yellow); Urine Specific Gravity 1.012 (1.001-1.035); WBC,Urine 2 /HPF (0-6)
[2017-11-15] MEDS: BACITRACIN OINT 28.35 GM TUBE TOP SCH (20:40)
[2017-11-15] MEDS: METOPROLOL SUCCINATE XL 50 MG TABLET PO SCH (20:41)
[2017-11-15] MEDS: PANTOPRAZOLE 40 MG VIAL IV SCH (20:41)
[2017-11-15] MEDS: DIGOXIN 0.125 MG TABLET PO SCH (20:41)
[2017-11-15] MEDS: CLORAZEPATE 7.5 MG TABLET PO SCH (22:20)
[2017-11-15] MEDS: ENOXAPARIN 40 MG/0.4 ML SYRINGE SUBCUT SCH (22:20)
[2017-11-16 04:53] LABS: Troponin I Only < 0.015 NG/ML (0.00-0.045)
[2017-11-16] MEDS: INSULIN REGULAR 100 UNIT/ML SUBCUT SCH ×2 (07:30→12:52)
[2017-11-16] MEDS ORDERED: TUBERCULIN SKIN TEST 0.1 ML SYRINGE INTRADERM ONE (09:17)
[2017-11-16] MEDS: DIGOXIN 0.125 MG TABLET PO SCH (11:19)
[2017-11-16] MEDS: METOPROLOL SUCCINATE XL 50 MG TABLET PO SCH (11:19)
[2017-11-16] MEDS: ASPIRIN CHEW 81 MG TABLET PO SCH (11:21)
[2017-11-16] MEDS: PENTOXIFYLLINE 400 MG TABLET PO SCH ×2 (11:21→12:51)
[2017-11-16] MEDS: PANTOPRAZOLE 40 MG VIAL IV SCH (11:29)
[2017-11-16] MEDS: BACITRACIN OINT 28.35 GM TUBE TOP SCH (11:30)
[2017-11-16 11:48] VITALS: BP 142/71
== END 2017-11-16 15:15 | disposition swing bed (61) | DRG 240 ==
LOC: N.SDS 05:54 → N.SDSINP 05:57 → EDSTATUS 07:30 → N.SDSINP 08:25 → N.3E 14:18
PROVIDERS: ADMIT Surgery; ATTEND Surgery

== ENCOUNTER 2017-11-20 11:08 | Inpatient (IN) ==
[2017-11-20] MEDS ORDERED: SODIUM CHLORIDE 0.9% 500 ML IV STA (11:43)
[2017-11-20 12:59] LABS: Basophils # 0.1 10*3/uL (0.0-0.2); Basophils % 0.5 % (0.0-0.8); Eosinophils # 0.8 10*3/uL (0.0-0.87); Eosinophils % 5.9 % (0.00-10.9); Hematocrit 38.8 VOL% (42.0-52.0); Hemoglobin 12.6 GM/DL (14.0-18.0); Immature Granulocytes % 0.6 %; Immature Granulocytes Absolute 0.09 #; Lymphocytes # 1.7 10*3/uL (1.4-4.0); Lymphocytes % 12.1 % (21.2-54.2); Mean Corpuscular HGB Conc 32.5 GM/DL (32-36); Mean Corpuscular Hemoglobin 26 PG (27-34); Mean Corpuscular Volume 81.3 FL (87-102); Mean Platelet Volume 10.8 FL (9.6-12.0); Monocytes # 0.9 10*3/uL (0.11-0.8); Monocytes % 6.7 % (1.7-12.7); Neutrophils # 10.4 10*3/uL (1.4-7.4); Neutrophils % 74.2 % (38.7-73.9); Platelet Count 337 T/CUMM (130-400); Red Blood Count 4.77 MC/CUMM (3.8-5.5); Red Cell Distribution Width 17.9 % (9.3-17.3); White Blood Count 13.9 T/CUMM (4-12)
[2017-11-20 13:09] LABS: INR 1.2; PT Patient Result 12.3 SECS
[2017-11-20 13:24] LABS: Albumin 2.4 G/DL (3.4-5.0); Bilirubin,Total 0.6 MG/DL (0.2-1.0); Calcium 8.4 MG/DL (8.5-10.1); Lactic Acid 1.2 MMOL/L (0.4-2.0); Osmolality,Calculated 274.4 MOS/KG (273-304); Potassium 3.8 MMOL/L (3.5-5.1); Total Protein 6.4 G/DL (6.4-8.3); Troponin I Only 0.03 NG/ML (0.00-0.045)
[2017-11-20 13:37] LABS: Apearance,Urine CLEAR (Clear); Bilirubin,Urine Negative (Negative); Blood, Urine Small mg/dL (Negative); Glucose,Urine (UA) Negative (Negative); Ketones,Urine 80 mg/dL (Negative); Mucus,Urine Occasional /LPF (Occasional); Nitrite,Urine Negative (Negative); Protein,Urine Negative; RBC,Urine <1 /HPF (0-4); Urine Color Yellow (Yellow); Urine Specific Gravity 1.014 (1.001-1.035); WBC,Urine 1 /HPF (0-6)
[2017-11-20 14:02] LABS: Sedimentation Rate-Westergren 32 MM/HR (0-20)
[2017-11-20] MEDS ORDERED: MORPHINE 2 MG/1 ML SYRINGE IV STA (14:25)
[2017-11-20] MEDS ORDERED: NITROGLYCERIN SL 0.4 MG TABLET SL PRN (16:05)
[2017-11-20] MEDS ORDERED: ONDANSETRON 4 MG/2 ML VIAL IV PRN (16:07)
[2017-11-20] MEDS ORDERED: LEVOFLOXACIN INJ 750 MG in PREMIX 1 EACH IV STA (16:23)
[2017-11-20] MEDS ORDERED: LEVOFLOXACIN INJ 150 ML IV ONE (17:04)
[2017-11-20 19:12] LABS: Troponin I Only 0.028 NG/ML (0.00-0.045)
[2017-11-20] MEDS ORDERED: HALOPERIDOL 5 MG/ML AMP IV PRN (20:15)
[2017-11-20] MEDS: ALBUTEROL/IPRATROPIUM 3 ML NEB RESP TX SCH (20:58)
[2017-11-20] MEDS ORDERED: HALOPERIDOL 5 MG/ML AMP ONE (21:15)
[2017-11-20] MEDS ORDERED: ZIPRASIDONE 20 MG/1 ML VIAL IM ONE ×2 (21:43→21:45)
[2017-11-21 04:21] LABS: Basophils # 0.1 10*3/uL (0.0-0.2); Basophils % 0.4 % (0.0-0.8); Eosinophils # 0.4 10*3/uL (0.0-0.87); Eosinophils % 3.6 % (0.00-10.9); Hematocrit 43.2 VOL% (42.0-52.0); Hemoglobin 13.7 GM/DL (14.0-18.0); Immature Granulocytes % 0.7 %; Immature Granulocytes Absolute 0.08 #; Lymphocytes # 1.1 10*3/uL (1.4-4.0); Lymphocytes % 9.3 % (21.2-54.2); Mean Corpuscular HGB Conc 31.7 GM/DL (32-36); Mean Corpuscular Hemoglobin 26 PG (27-34); Mean Corpuscular Volume 81.7 FL (87-102); Mean Platelet Volume 11.6 FL (9.6-12.0); Monocytes % 8.6 % (1.7-12.7); Neutrophils # 9.4 10*3/uL (1.4-7.4); Neutrophils % 77.4 % (38.7-73.9); Platelet Count 266 T/CUMM (130-400); Red Blood Count 5.29 MC/CUMM (3.8-5.5); Red Cell Distribution Width 18.7 % (9.3-17.3); White Blood Count 12.1 T/CUMM (4-12)
[2017-11-21 04:54] LABS: Troponin I Only 0.045 NG/ML (0.00-0.045)
[2017-11-21 05:34] LABS: Calcium 9.1 MG/DL (8.5-10.1); Osmolality,Calculated 273.4 MOS/KG (273-304); Potassium 3.8 MMOL/L (3.5-5.1)
[2017-11-21] MEDS: ALBUTEROL/IPRATROPIUM 3 ML NEB RESP TX SCH ×2 (08:00→20:23)
[2017-11-21] MEDS: ASPIRIN CHEW 81 MG TABLET PO SCH (11:45)
[2017-11-21] MEDS: SPIRONOLACTONE 25 MG TABLET PO SCH (11:45)
[2017-11-21] MEDS: METOPROLOL SUCCINATE XL 50 MG TABLET PO SCH (11:45)
[2017-11-21] MEDS: PANTOPRAZOLE 40 MG TABLET PO SCH (11:47)
[2017-11-21] MEDS ORDERED: LEVOFLOXACIN INJ 750 MG in PREMIX 1 EACH IV SCH (18:00)
[2017-11-21] MEDS ORDERED: ALUM/MAG/SIMETH/LIDO VISC 1:1 30 ML BOTTLE PO ONE (20:08)
[2017-11-21] MEDS ORDERED: ZIPRASIDONE 20 MG/1 ML VIAL IM ONE (20:09)
[2017-11-22] MEDS: ALBUTEROL/IPRATROPIUM 3 ML NEB RESP TX SCH (08:08)
[2017-11-22] MEDS: SPIRONOLACTONE 25 MG TABLET PO SCH (10:23)
[2017-11-22] MEDS: PANTOPRAZOLE 40 MG TABLET PO SCH (10:24)
[2017-11-22] MEDS: ASPIRIN CHEW 81 MG TABLET PO SCH (10:24)
[2017-11-22] MEDS: METOPROLOL SUCCINATE XL 50 MG TABLET PO SCH (10:24)
[2017-11-22 12:06] VITALS: BP 160/75
[2017-11-24] MEDS ORDERED: MORPHINE 10 MG/1 ML VIAL ONE (17:00)
== END 2017-11-22 16:16 | DRG 884 ==
LOC: EDUNIT# → EDBD → N.EDINP 11:08 → N.ED 11:08 → N.TELEN 20:40

== ENCOUNTER 2017-11-27 17:52 | Inpatient (IN) ==
[2017-11-27] MEDS ORDERED: methylPREDNISolone SOD SUC 125 MG/2 ML VIAL IV STA (18:46)
[2017-11-27] MEDS ORDERED: ONDANSETRON 4 MG/2 ML VIAL IV STA (18:46)
[2017-11-27] MEDS ORDERED: MORPHINE 2 MG/1 ML SYRINGE IV STA (18:46)
[2017-11-27] MEDS ORDERED: FUROSEMIDE 100 MG/10 ML VIAL IV STA (18:46)
[2017-11-27] MEDS ORDERED: ALBUTEROL 2.5 MG/3 ML NEB RESP TX SCH (19:00)
[2017-11-27] MEDS ORDERED: MORPHINE 10 MG/1 ML VIAL ONE (19:02)
[2017-11-27] MEDS ORDERED: FUROSEMIDE 40 MG/4 ML VIAL ONE (19:02)
[2017-11-27] MEDS ORDERED: ONDANSETRON 4 MG/2 ML VIAL ONE (19:02)
[2017-11-27] MEDS ORDERED: methylPREDNISolone SOD SUC 125 MG/2 ML VIAL ONE (19:03)
[2017-11-27] MEDS ORDERED: cefTRIAXone 1,000 MG in SODIUM CHLORIDE 0.9% 100 ML IV STA (19:21)
[2017-11-27 19:25] LABS: Basophils % 0.3 % (0.0-0.8); Eosinophils # 0.1 10*3/uL (0.0-0.87); Eosinophils % 0.5 % (0.00-10.9); Hematocrit 42.1 VOL% (42.0-52.0); Hemoglobin 13.7 GM/DL (14.0-18.0); Immature Granulocytes % 0.6 %; Lymphocytes % 12.7 % (21.2-54.2); Mean Corpuscular HGB Conc 32.5 GM/DL (32-36); Mean Corpuscular Hemoglobin 26 PG (27-34); Mean Corpuscular Volume 80.8 FL (87-102); Mean Platelet Volume 10.2 FL (9.6-12.0); Monocytes # 1.6 10*3/uL (0.11-0.8); Monocytes % 10.5 % (1.7-12.7); Neutrophils # 11.8 10*3/uL (1.4-7.4); Neutrophils % 75.4 % (38.7-73.9); Platelet Count 297 T/CUMM (130-400); Red Blood Count 5.21 MC/CUMM (3.8-5.5); Red Cell Distribution Width 18.7 % (9.3-17.3); White Blood Count 15.7 T/CUMM (4-12)
[2017-11-27] MEDS ORDERED: SODIUM CHLORIDE 0.9% 100 ML IV ONE (19:42)
[2017-11-27] MEDS ORDERED: cefTRIAXone 1,000 MG VIAL ONE (19:42)
[2017-11-27 19:43] LABS: Albumin 2.7 G/DL (3.4-5.0); Bilirubin,Total 0.9 MG/DL (0.2-1.0); Calcium 8.7 MG/DL (8.5-10.1); Osmolality,Calculated 273.7 MOS/KG (273-304); Potassium 3.1 MMOL/L (3.5-5.1); Total Protein 6.7 G/DL (6.4-8.3); Troponin I Only 0.015 NG/ML (0.00-0.045)
[2017-11-27 19:59] LABS: INR 1.2; PT Patient Result 12.5 SECS
[2017-11-27] MEDS ORDERED: POTASSIUM CHLORIDE 20 MEQ TABLET PO STA (20:48)
[2017-11-27 20:51] LABS: ABG Base Excess 7.3 MMOL/L (-2.5-2.5); ABG Oxygen Saturation 94.8 % (95-100); ABG PCO2 47.5 MM HG (35-48); ABG PH 7.446 (7.35-7.45); ABG PO2 65.5 MM HG (80-95); ABG TCO2 28.2 MMOL/L (23-27); Allen Test Positive
[2017-11-27] MEDS ORDERED: POTASSIUM CHLORIDE RIDER 10 MEQ in PREMIX 1 EACH IV ONE (22:46)
[2017-11-27 23:17] LABS: Anisocytosis 1+; Polychromasia Slight; Target Cells Slight
[2017-11-27] MEDS ORDERED: DEXTROSE 50% 25 GM/50 ML VIAL IV PRN (23:42)
[2017-11-27] MEDS ORDERED: LACTULOSE 20 GM/30 ML UDCUP PO PRN (23:42)
[2017-11-27] MEDS ORDERED: GLUCAGON 1 MG VIAL IM PRN (23:42)
[2017-11-27] MEDS ORDERED: NITROGLYCERIN SL 0.4 MG TABLET SL PRN (23:42)
[2017-11-27] MEDS ORDERED: ONDANSETRON 4 MG/2 ML VIAL IV PRN (23:42)
[2017-11-27] MEDS ORDERED: ACETAMINOPHEN 325 MG TABLET PO PRN (23:42)
[2017-11-27] MEDS ORDERED: MORPHINE 10 MG/1 ML VIAL IV PRN (23:42)
[2017-11-28] MEDS: SODIUM CHLORIDE 0.9% 1,000 ML IV SCH (02:19)
[2017-11-28] MEDS ORDERED: methylPREDNISolone SOD SUC 40 MG/1 ML VIAL IV SCH (02:30)
[2017-11-28] MEDS: INSULIN REGULAR 100 UNIT/ML SUBCUT SCH ×5 (02:39→21:50)
[2017-11-28] MEDS: DOCUSATE SODIUM 100 MG CAPSULE PO SCH ×3 (02:40→23:17)
[2017-11-28] MEDS: LEVOFLOXACIN INJ 500 MG in PREMIX 1 EACH IV SCH ×3 (04:23→23:36)
[2017-11-28 05:55] LABS: Basophils % 0.2 % (0.0-0.8); Hematocrit 42.5 VOL% (42.0-52.0); Hemoglobin 13.7 GM/DL (14.0-18.0); Immature Granulocytes Absolute 0.19 #; Lymphocytes % 5.2 % (21.2-54.2); Mean Corpuscular HGB Conc 32.2 GM/DL (32-36); Mean Corpuscular Hemoglobin 26 PG (27-34); Mean Platelet Volume 10.4 FL (9.6-12.0); Monocytes # 0.9 10*3/uL (0.11-0.8); Monocytes % 4.5 % (1.7-12.7); Neutrophils # 17.4 10*3/uL (1.4-7.4); Neutrophils % 89.1 % (38.7-73.9); Platelet Count 308 T/CUMM (130-400); Red Blood Count 5.31 MC/CUMM (3.8-5.5); Red Cell Distribution Width 19.2 % (9.3-17.3); White Blood Count 19.5 T/CUMM (4-12)
[2017-11-28 06:29] LABS: Albumin 2.3 G/DL (3.4-5.0); Bilirubin,Total 0.8 MG/DL (0.2-1.0); Calcium 8.9 MG/DL (8.5-10.1); Osmolality,Calculated 284.3 MOS/KG (273-304); Potassium 3.3 MMOL/L (3.5-5.1); Risk Ratio 2.81; Total Protein 6.7 G/DL (6.4-8.3)
[2017-11-28] MEDS: ALBUTEROL/IPRATROPIUM 3 ML NEB RESP TX SCH ×2 (08:32→18:55)
[2017-11-28 10:36] LABS: Apearance,Urine CLEAR (Clear); Bacteria,Urine Occasional /HPF (Few); Bilirubin,Urine Negative (Negative); Blood, Urine Negative (Negative); Glucose,Urine (UA) Negative (Negative); Hyaline Casts,Urine 7 /LPF (0-3); Ketones,Urine Negative (Negative); Mucus,Urine Few /LPF (Occasional); Nitrite,Urine Negative (Negative); Protein,Urine Negative; RBC,Urine 1 /HPF (0-4); Squamous Epithelial Cell,Urine Occasional /HPF (0-10); Urine Color Yellow (Yellow); Urine Urobilinogen < 2.0 EU/DL (0.2-1.0)
[2017-11-28] MEDS: ASPIRIN CHEW 81 MG TABLET PO SCH (10:56)
[2017-11-28] MEDS: PENTOXIFYLLINE 400 MG TABLET PO SCH ×3 (10:56→16:45)
[2017-11-28] MEDS: DIGOXIN 0.125 MG TABLET PO SCH (10:56)
[2017-11-28] MEDS: SPIRONOLACTONE 25 MG TABLET PO SCH (10:56)
[2017-11-28] MEDS: METOPROLOL SUCCINATE XL 50 MG TABLET PO SCH (10:57)
[2017-11-28] MEDS: PANTOPRAZOLE 40 MG VIAL IV SCH (11:09)
[2017-11-28] MEDS: CEFEPIME 1,000 MG in SYRINGE 1 EACH IV SCH ×2 (11:10→23:28)
[2017-11-28] MEDS: methylPREDNISolone SOD SUC 40 MG/1 ML VIAL IV SCH (16:45)
[2017-11-28] MEDS ORDERED: cefTRIAXone 1,000 MG in SYRINGE 1 EACH IV SCH (20:00)
[2017-11-29] MEDS: SODIUM CHLORIDE 0.9% 1,000 ML IV SCH (00:05)
[2017-11-29] MEDS: methylPREDNISolone SOD SUC 40 MG/1 ML VIAL IV SCH ×2 (03:06→17:19)
[2017-11-29 06:20] LABS: Osmolality,Calculated 284.1 MOS/KG (273-304); Potassium 3.4 MMOL/L (3.5-5.1); Prealbumin 5.7 MG/DL (20-40)
[2017-11-29] MEDS: ALBUTEROL/IPRATROPIUM 3 ML NEB RESP TX SCH ×2 (06:54→19:23)
[2017-11-29] MEDS: SPIRONOLACTONE 25 MG TABLET PO SCH (08:50)
[2017-11-29] MEDS: PENTOXIFYLLINE 400 MG TABLET PO SCH ×3 (08:50→17:19)
[2017-11-29] MEDS: ASPIRIN CHEW 81 MG TABLET PO SCH (08:50)
[2017-11-29] MEDS: DOCUSATE SODIUM 100 MG CAPSULE PO SCH ×2 (08:50→20:59)
[2017-11-29] MEDS: DIGOXIN 0.125 MG TABLET PO SCH (08:50)
[2017-11-29] MEDS: PANTOPRAZOLE 40 MG VIAL IV SCH (08:51)
[2017-11-29] MEDS: LEVOFLOXACIN INJ 500 MG in PREMIX 1 EACH IV SCH (09:06)
[2017-11-29] MEDS: INSULIN REGULAR 100 UNIT/ML SUBCUT SCH ×3 (09:11→18:37)
[2017-11-29] MEDS: METOPROLOL SUCCINATE XL 50 MG TABLET PO SCH (11:08)
[2017-11-29] MEDS: CEFEPIME 1,000 MG in SYRINGE 1 EACH IV SCH ×2 (11:09→21:01)
[2017-11-29] MEDS ORDERED: POTASSIUM CHLORIDE 20 MEQ/15 ML UDCUP PER TUBE ONE (11:56)
[2017-11-29] MEDS ORDERED: POTASSIUM CHLORIDE 20 MEQ/15 ML UDCUP PER TUBE PRN (11:58)
[2017-11-29] MEDS ORDERED: SKIN HEALING OINT (AQUAPHOR) 50 GM TUBE TOP PRN (15:10)
[2017-11-30] MEDS: LEVOFLOXACIN INJ 500 MG in PREMIX 1 EACH IV SCH ×2 (00:07→09:13)
[2017-11-30] MEDS: INSULIN REGULAR 100 UNIT/ML SUBCUT SCH ×3 (00:07→09:07)
[2017-11-30] MEDS: methylPREDNISolone SOD SUC 40 MG/1 ML VIAL IV SCH ×2 (04:47→17:20)
[2017-11-30 06:40] LABS: Calcium 8.6 MG/DL (8.5-10.1); Osmolality,Calculated 284.1 MOS/KG (273-304)
[2017-11-30 07:27] LABS: Basophils % 0.1 % (0.0-0.8); Hematocrit 39.3 VOL% (42.0-52.0); Hemoglobin 12.8 GM/DL (14.0-18.0); Lymphocytes # 1.3 10*3/uL (1.4-4.0); Lymphocytes % 6.7 % (21.2-54.2); Mean Corpuscular HGB Conc 32.6 GM/DL (32-36); Mean Corpuscular Hemoglobin 26 PG (27-34); Mean Corpuscular Volume 80.4 FL (87-102); Mean Platelet Volume 11.4 FL (9.6-12.0); Monocytes # 1.9 10*3/uL (0.11-0.8); Monocytes % 9.7 % (1.7-12.7); Neutrophils % 82.5 % (38.7-73.9); Platelet Count 300 T/CUMM (130-400); Red Blood Count 4.89 MC/CUMM (3.8-5.5); Red Cell Distribution Width 18.6 % (9.3-17.3); White Blood Count 19.4 T/CUMM (4-12)
[2017-11-30] MEDS: ALBUTEROL/IPRATROPIUM 3 ML NEB RESP TX SCH ×2 (08:04→19:49)
[2017-11-30] MEDS: SODIUM CHLORIDE 0.9% 1,000 ML IV SCH (09:07)
[2017-11-30] MEDS: DIGOXIN 0.125 MG TABLET PO SCH (09:08)
[2017-11-30] MEDS: METOPROLOL SUCCINATE XL 50 MG TABLET PO SCH (09:09)
[2017-11-30] MEDS: PENTOXIFYLLINE 400 MG TABLET PO SCH ×3 (09:09→17:20)
[2017-11-30] MEDS: DOCUSATE SODIUM 100 MG CAPSULE PO SCH ×2 (09:09→20:34)
[2017-11-30] MEDS: CEFEPIME 1,000 MG in SYRINGE 1 EACH IV SCH ×2 (09:09→20:36)
[2017-11-30] MEDS: SPIRONOLACTONE 25 MG TABLET PO SCH (09:09)
[2017-11-30] MEDS: PANTOPRAZOLE 40 MG VIAL IV SCH (09:10)
[2017-11-30] MEDS: ZINC OXIDE PASTE 113 GM TUBE TOP PRN (09:13)
[2017-11-30] MEDS ORDERED: POTASSIUM CHLORIDE 20 MEQ/15 ML UDCUP PO ONE (21:30)
[2017-11-30] MEDS: SKIN HEALING OINT (AQUAPHOR) 50 GM TUBE TOP SCH (22:09)
[2017-12-01] MEDS: LEVOFLOXACIN INJ 500 MG in PREMIX 1 EACH IV SCH ×2 (00:40→08:54)
[2017-12-01] MEDS: SODIUM CHLORIDE 0.9% 1,000 ML IV SCH (02:20)
[2017-12-01] MEDS: methylPREDNISolone SOD SUC 40 MG/1 ML VIAL IV SCH ×2 (05:03→17:43)
[2017-12-01 07:01] LABS: Basophils % 0.1 % (0.0-0.8); Eosinophils # 0.1 10*3/uL (0.0-0.87); Eosinophils % 0.4 % (0.00-10.9); Hematocrit 37.9 VOL% (42.0-52.0); Hemoglobin 12.3 GM/DL (14.0-18.0); Immature Granulocytes % 0.7 %; Immature Granulocytes Absolute 0.09 #; Lymphocytes # 1.4 10*3/uL (1.4-4.0); Lymphocytes % 10.4 % (21.2-54.2); Mean Corpuscular HGB Conc 32.5 GM/DL (32-36); Mean Corpuscular Hemoglobin 26 PG (27-34); Mean Corpuscular Volume 80.5 FL (87-102); Monocytes % 7.6 % (1.7-12.7); Neutrophils # 10.9 10*3/uL (1.4-7.4); Neutrophils % 80.8 % (38.7-73.9); Platelet Count 273 T/CUMM (130-400); Red Blood Count 4.71 MC/CUMM (3.8-5.5); Red Cell Distribution Width 18.6 % (9.3-17.3); White Blood Count 13.4 T/CUMM (4-12)
[2017-12-01] MEDS: ALBUTEROL/IPRATROPIUM 3 ML NEB RESP TX SCH ×2 (07:01→19:57)
[2017-12-01] MEDS: DIGOXIN 0.125 MG TABLET PO SCH (08:50)
[2017-12-01] MEDS: DOCUSATE SODIUM 100 MG CAPSULE PO SCH ×2 (08:50→21:19)
[2017-12-01] MEDS: PANTOPRAZOLE 40 MG VIAL IV SCH (08:50)
[2017-12-01] MEDS: PENTOXIFYLLINE 400 MG TABLET PO SCH ×3 (08:50→17:43)
[2017-12-01] MEDS: METOPROLOL SUCCINATE XL 50 MG TABLET PO SCH (08:50)
[2017-12-01] MEDS: SPIRONOLACTONE 25 MG TABLET PO SCH (08:50)
[2017-12-01] MEDS: INSULIN REGULAR 100 UNIT/ML SUBCUT SCH (08:53)
[2017-12-01] MEDS: CEFEPIME 1,000 MG in SYRINGE 1 EACH IV SCH ×2 (08:54→21:16)
[2017-12-01] MEDS: SKIN HEALING OINT (AQUAPHOR) 50 GM TUBE TOP SCH ×2 (08:54→21:21)
[2017-12-01] MEDS: ZINC OXIDE PASTE 113 GM TUBE TOP PRN (21:18)
[2017-12-02] MEDS: SODIUM CHLORIDE 0.9% 1,000 ML IV SCH (01:20)
[2017-12-02] MEDS: LEVOFLOXACIN INJ 500 MG in PREMIX 1 EACH IV SCH ×2 (01:21→08:44)
[2017-12-02] MEDS: methylPREDNISolone SOD SUC 40 MG/1 ML VIAL IV SCH ×2 (04:29→17:02)
[2017-12-02] MEDS: ALBUTEROL/IPRATROPIUM 3 ML NEB RESP TX SCH ×2 (06:58→19:25)
[2017-12-02] MEDS: INSULIN REGULAR 100 UNIT/ML SUBCUT SCH (08:43)
[2017-12-02] MEDS: METOPROLOL SUCCINATE XL 50 MG TABLET PO SCH (08:44)
[2017-12-02] MEDS: DIGOXIN 0.125 MG TABLET PO SCH (08:44)
[2017-12-02] MEDS: SPIRONOLACTONE 25 MG TABLET PO SCH (08:44)
[2017-12-02] MEDS: PENTOXIFYLLINE 400 MG TABLET PO SCH ×3 (08:44→17:03)
[2017-12-02] MEDS: PANTOPRAZOLE 40 MG VIAL IV SCH (08:45)
[2017-12-02] MEDS: CEFEPIME 1,000 MG in SYRINGE 1 EACH IV SCH ×2 (08:47→21:16)
[2017-12-02] MEDS: SKIN HEALING OINT (AQUAPHOR) 50 GM TUBE TOP SCH ×2 (08:47→21:17)
[2017-12-02] MEDS: DOCUSATE SODIUM 100 MG CAPSULE PO SCH ×2 (08:47→21:16)
[2017-12-02 12:07] LABS: Calcium 8.6 MG/DL (8.5-10.1); Potassium 4.3 MMOL/L (3.5-5.1)
[2017-12-02 12:30] LABS: Basophils % 0.1 % (0.0-0.8); Hematocrit 38.9 VOL% (42.0-52.0); Hemoglobin 12.4 GM/DL (14.0-18.0); Immature Granulocytes % 0.8 %; Immature Granulocytes Absolute 0.15 #; Lymphocytes # 0.8 10*3/uL (1.4-4.0); Lymphocytes % 4.6 % (21.2-54.2); Mean Corpuscular HGB Conc 31.9 GM/DL (32-36); Mean Corpuscular Hemoglobin 26 PG (27-34); Mean Corpuscular Volume 81.9 FL (87-102); Monocytes # 0.5 10*3/uL (0.11-0.8); Monocytes % 2.9 % (1.7-12.7); Neutrophils # 16.3 10*3/uL (1.4-7.4); Neutrophils % 91.6 % (38.7-73.9); Platelet Count 219 T/CUMM (130-400); Red Blood Count 4.75 MC/CUMM (3.8-5.5); Red Cell Distribution Width 18.3 % (9.3-17.3); White Blood Count 17.8 T/CUMM (4-12)
[2017-12-02] MEDS: ZINC OXIDE PASTE 113 GM TUBE TOP PRN (21:17)
[2017-12-03] MEDS: SODIUM CHLORIDE 0.9% 1,000 ML IV SCH (00:01)
[2017-12-03] MEDS: LEVOFLOXACIN INJ 500 MG in PREMIX 1 EACH IV SCH (00:02)
[2017-12-03] MEDS: methylPREDNISolone SOD SUC 40 MG/1 ML VIAL IV SCH ×2 (04:57→16:20)
[2017-12-03] MEDS: ALBUTEROL/IPRATROPIUM 3 ML NEB RESP TX SCH ×2 (07:02→20:05)
[2017-12-03] MEDS: INSULIN REGULAR 100 UNIT/ML SUBCUT SCH (07:14)
[2017-12-03] MEDS: METOPROLOL SUCCINATE XL 50 MG TABLET PO SCH (08:34)
[2017-12-03] MEDS: PENTOXIFYLLINE 400 MG TABLET PO SCH ×3 (08:34→16:21)
[2017-12-03] MEDS: SPIRONOLACTONE 25 MG TABLET PO SCH (08:34)
[2017-12-03] MEDS: DOCUSATE SODIUM 100 MG CAPSULE PO SCH ×2 (08:34→21:30)
[2017-12-03] MEDS: DIGOXIN 0.125 MG TABLET PO SCH (08:34)
[2017-12-03] MEDS: PANTOPRAZOLE 40 MG VIAL IV SCH (08:35)
[2017-12-03] MEDS: SKIN HEALING OINT (AQUAPHOR) 50 GM TUBE TOP SCH ×2 (08:35→21:31)
[2017-12-03] MEDS: CEFEPIME 1,000 MG in SYRINGE 1 EACH IV SCH ×2 (08:38→21:30)
[2017-12-04] MEDS: SODIUM CHLORIDE 0.9% 1,000 ML IV SCH (00:57)
[2017-12-04] MEDS: LEVOFLOXACIN INJ 500 MG in PREMIX 1 EACH IV SCH (00:58)
[2017-12-04] MEDS: methylPREDNISolone SOD SUC 40 MG/1 ML VIAL IV SCH ×2 (05:30→17:49)
[2017-12-04 06:45] LABS: Calcium 8.5 MG/DL (8.5-10.1); Osmolality,Calculated 275.7 MOS/KG (273-304); Potassium 3.7 MMOL/L (3.5-5.1)
[2017-12-04] MEDS: ALBUTEROL/IPRATROPIUM 3 ML NEB RESP TX SCH ×2 (07:10→20:39)
[2017-12-04] MEDS: DIGOXIN 0.125 MG TABLET PO SCH (10:15)
[2017-12-04] MEDS: DOCUSATE SODIUM 100 MG CAPSULE PO SCH ×2 (10:15→23:13)
[2017-12-04] MEDS: PENTOXIFYLLINE 400 MG TABLET PO SCH ×3 (10:16→17:50)
[2017-12-04] MEDS: METOPROLOL SUCCINATE XL 50 MG TABLET PO SCH (10:16)
[2017-12-04] MEDS: SPIRONOLACTONE 25 MG TABLET PO SCH (10:17)
[2017-12-04] MEDS: PANTOPRAZOLE 40 MG VIAL IV SCH (10:18)
[2017-12-04] MEDS: INSULIN REGULAR 100 UNIT/ML SUBCUT SCH (10:18)
[2017-12-04] MEDS: SKIN HEALING OINT (AQUAPHOR) 50 GM TUBE TOP SCH ×2 (10:18→23:13)
[2017-12-04] MEDS: CEFEPIME 1,000 MG in SYRINGE 1 EACH IV SCH (10:20)
[2017-12-04] MEDS ORDERED: LEVOFLOXACIN 500 MG TABLET PO SCH (21:00)
[2017-12-04] MEDS: ZINC OXIDE PASTE 113 GM TUBE TOP PRN (23:13)
[2017-12-05] MEDS: ALBUTEROL/IPRATROPIUM 3 ML NEB RESP TX SCH (07:08)
[2017-12-05] MEDS ORDERED: predniSONE 10 MG TABLET PO SCH (09:00)
[2017-12-05] MEDS: DIGOXIN 0.125 MG TABLET PO SCH (09:02)
[2017-12-05] MEDS: DOCUSATE SODIUM 100 MG CAPSULE PO SCH (09:02)
[2017-12-05] MEDS: PENTOXIFYLLINE 400 MG TABLET PO SCH (09:03)
[2017-12-05] MEDS: METOPROLOL SUCCINATE XL 50 MG TABLET PO SCH (09:03)
[2017-12-05] MEDS: SPIRONOLACTONE 25 MG TABLET PO SCH (09:03)
[2017-12-05] MEDS: PANTOPRAZOLE 40 MG VIAL IV SCH (09:03)
[2017-12-05] MEDS: SKIN HEALING OINT (AQUAPHOR) 50 GM TUBE TOP SCH (09:04)
[2017-12-05] MEDS: INSULIN REGULAR 100 UNIT/ML SUBCUT SCH (09:04)
[2017-12-05 09:23] VITALS: BP 124/64
== END 2017-12-05 11:54 | DRG 193 ==
LOC: EDUNIT# → EDBD → N.ED 17:52 → N.EDINP 20:51 → N.5E 21:08
PROVIDERS: ADMIT Internal Medicine; ATTEND Internal Medicine

== ENCOUNTER 2018-01-05 09:58 | Inpatient (IN) ==
[2018-01-05] MEDS ORDERED: SODIUM CHLORIDE 0.9% 1,000 ML IV STA ×2 (11:17→13:20)
[2018-01-05 11:26] LABS: Basophils % 0.1 % (0.0-0.8); Hematocrit 30.9 VOL% (42.0-52.0); Immature Granulocytes % 1.6 %; Immature Granulocytes Absolute 0.37 #; Lymphocytes # 2.8 10*3/uL (1.4-4.0); Lymphocytes % 12.2 % (21.2-54.2); Mean Corpuscular HGB Conc 32.4 GM/DL (32-36); Mean Corpuscular Hemoglobin 26 PG (27-34); Mean Corpuscular Volume 81.5 FL (87-102); Monocytes # 0.9 10*3/uL (0.11-0.8); Monocytes % 4.1 % (1.7-12.7); NRBC # 0.03 10*3/uL; Neutrophils # 18.5 10*3/uL (1.4-7.4); Platelet Count 336 T/CUMM (130-400); Red Blood Count 3.79 MC/CUMM (3.8-5.5); Red Cell Distribution Width 18.8 % (9.3-17.3); White Blood Count 22.6 T/CUMM (4-12)
[2018-01-05 11:37] LABS: INR 1.2; PT Patient Result 12.4 SECS; Partial Thromboplastin Time 24.3 SECS (0-40)
[2018-01-05 11:44] LABS: Hypochromasia 1+; Lymphocytes 11 % (20-55); Microcytosis 1+; Segmented Neutrophils 88 % (50-85); Total Cells Counted 100
[2018-01-05 11:45] LABS: Platelet Estimate Normal
[2018-01-05 11:51] LABS: Albumin 2.2 G/DL (3.4-5.0); Bilirubin,Total 0.4 MG/DL (0.2-1.0); Calcium 9.3 MG/DL (8.5-10.1); Osmolality,Calculated 293.1 MOS/KG (273-304); Total Protein 6.5 G/DL (6.4-8.3)
[2018-01-05] MEDS ORDERED: ONDANSETRON 4 MG/2 ML VIAL IV PRN (14:25)
[2018-01-05] MEDS ORDERED: VANCOMYCIN INJ 1,000 MG in SODIUM CHLORIDE 0.9% 250 ML IV STA (14:25)
[2018-01-05] MEDS ORDERED: ACETAMINOPHEN 325 MG TABLET PO PRN ×2 (14:25→18:00)
[2018-01-05] MEDS ORDERED: metroNIDAZOLE INJ 500 MG in PREMIX 1 EACH IV SCH (14:30)
[2018-01-05] MEDS ORDERED: SODIUM CHLORIDE 0.9% 1,000 ML IV SCH (14:30)
[2018-01-05] MEDS ORDERED: SODIUM CHLORIDE 0.9% 250 ML IV ONE (14:40)
[2018-01-05] MEDS ORDERED: VANCOMYCIN 1,000 MG VIAL ONE (14:40)
[2018-01-05] MEDS ORDERED: VANCOMYCIN 50 MG/ML 60 ML/BOTTLE PO SCH (18:00)
[2018-01-05] MEDS: metroNIDAZOLE INJ 500 MG in PREMIX 1 EACH IV SCH (18:30)
[2018-01-05 19:04] LABS: Hematocrit 22.7 VOL% (42.0-52.0); Hemoglobin 7.4 GM/DL (14.0-18.0)
[2018-01-05] MEDS ORDERED: DOCUSATE SODIUM 100 MG CAPSULE PO SCH (21:00)
[2018-01-05] MEDS: VANCOMYCIN INJ 1,000 MG in SODIUM CHLORIDE 0.9% 250 ML IV SCH (21:15)
[2018-01-05] MEDS: VANCOMYCIN 50 MG/ML 60 ML/BOTTLE PO SCH (21:19)
[2018-01-05] MEDS ORDERED: SODIUM CHLORIDE 0.9% 1,000 ML IV PRN (23:13)
[2018-01-05] MEDS ORDERED: FUROSEMIDE 40 MG/4 ML VIAL IV ONE (23:15)
[2018-01-06] MEDS: VANCOMYCIN 50 MG/ML 60 ML/BOTTLE PO SCH ×4 (00:16→17:32)
[2018-01-06] MEDS: metroNIDAZOLE INJ 500 MG in PREMIX 1 EACH IV SCH ×4 (06:03→21:53)
[2018-01-06] MEDS ORDERED: FUROSEMIDE 40 MG/4 ML VIAL IV ONE (06:30)
[2018-01-06] MEDS ORDERED: PANTOPRAZOLE 40 MG TABLET PO SCH ×2 (09:00)
[2018-01-06] MEDS ORDERED: ZINC OXIDE PASTE 113 GM TUBE TOP PRN (09:22)
[2018-01-06] MEDS ORDERED: NITROGLYCERIN SL 0.4 MG TABLET SL PRN (09:22)
[2018-01-06] MEDS: predniSONE 10 MG TABLET PO SCH ×2 (09:30→21:53)
[2018-01-06] MEDS: SPIRONOLACTONE 25 MG TABLET PO SCH (09:30)
[2018-01-06] MEDS ORDERED: SODIUM CHLORIDE 0.9% 1,000 ML IV ONE (13:14)
[2018-01-06] MEDS ORDERED: PANTOPRAZOLE 40 MG VIAL IV ONE (13:15)
[2018-01-06 13:36] LABS: Apearance,Urine CLEAR (Clear); Bilirubin,Urine Negative (Negative); Blood, Urine Negative (Negative); Glucose,Urine (UA) Negative (Negative); Hyaline Casts,Urine 1 /LPF (0-3); Ketones,Urine Negative (Negative); Mucus,Urine Occasional /LPF (Occasional); Nitrite,Urine Negative (Negative); Protein,Urine Negative; RBC,Urine <1 /HPF (0-4); Urine Color Colorless (Yellow); Urine Specific Gravity 1.004 (1.001-1.035); Urine Urobilinogen < 2.0 EU/DL (0.2-1.0); WBC,Urine <1 /HPF (0-6)
[2018-01-06] MEDS: SODIUM CHLORIDE 0.9% 1,000 ML IV SCH (15:15)
[2018-01-06 15:44] LABS: Basophils # 0.1 10*3/uL (0.0-0.2); Basophils % 0.2 % (0.0-0.8); Eosinophils # 0.1 10*3/uL (0.0-0.87); Eosinophils % 0.2 % (0.00-10.9); Immature Granulocytes % 1.5 %; Immature Granulocytes Absolute 0.33 #; Lymphocytes # 2.2 10*3/uL (1.4-4.0); Lymphocytes % 10.1 % (21.2-54.2); Mean Corpuscular Hemoglobin 27 PG (27-34); Mean Corpuscular Volume 82.1 FL (87-102); Mean Platelet Volume 10.3 FL (9.6-12.0); Monocytes # 1.2 10*3/uL (0.11-0.8); Monocytes % 5.6 % (1.7-12.7); NRBC # 0.02 10*3/uL; Neutrophils # 18.2 10*3/uL (1.4-7.4); Neutrophils % 82.4 % (38.7-73.9); Platelet Count 239 T/CUMM (130-400); Red Blood Count 3.29 MC/CUMM (3.8-5.5); Red Cell Distribution Width 17.3 % (9.3-17.3); White Blood Count 22.1 T/CUMM (4-12)
[2018-01-06 15:47] LABS: Hemoglobin 8.9 GM/DL (14.0-18.0)
[2018-01-06 16:00] LABS: Potassium 3.2 MMOL/L (3.5-5.1)
[2018-01-06] MEDS: VANCOMYCIN INJ 1,000 MG in SODIUM CHLORIDE 0.9% 250 ML IV SCH (16:45)
[2018-01-06 17:11] LABS: Eosinophils 2 % (0-10); Lymphocytes 10 % (20-55); Platelet Estimate Normal; Segmented Neutrophils 82 % (50-85); Total Cells Counted 100
[2018-01-06] MEDS: ALBUTEROL/IPRATROPIUM 3 ML NEB RESP TX SCH (19:36)
[2018-01-06] MEDS: PANTOPRAZOLE 40 MG VIAL IV SCH (21:51)
[2018-01-07] MEDS: VANCOMYCIN 50 MG/ML 60 ML/BOTTLE PO SCH ×4 (00:57→17:21)
[2018-01-07] MEDS: SKIN HEALING OINT (AQUAPHOR) 50 GM TUBE TOP SCH ×3 (01:01→21:29)
[2018-01-07 01:45] LABS: Basophils % 0.2 % (0.0-0.8); Eosinophils # 0.1 10*3/uL (0.0-0.87); Eosinophils % 0.2 % (0.00-10.9); Hematocrit 26.2 VOL% (42.0-52.0); Hemoglobin 8.7 GM/DL (14.0-18.0); Immature Granulocytes % 1.2 %; Immature Granulocytes Absolute 0.25 #; Lymphocytes # 1.6 10*3/uL (1.4-4.0); Lymphocytes % 7.7 % (21.2-54.2); Mean Corpuscular HGB Conc 33.2 GM/DL (32-36); Mean Corpuscular Hemoglobin 27 PG (27-34); Mean Corpuscular Volume 81.1 FL (87-102); Mean Platelet Volume 10.3 FL (9.6-12.0); Monocytes # 0.8 10*3/uL (0.11-0.8); Monocytes % 3.7 % (1.7-12.7); NRBC # 0.02 10*3/uL; Neutrophils # 17.9 10*3/uL (1.4-7.4); Platelet Count 244 T/CUMM (130-400); Red Blood Count 3.23 MC/CUMM (3.8-5.5); Red Cell Distribution Width 17.4 % (9.3-17.3); White Blood Count 20.6 T/CUMM (4-12)
[2018-01-07 02:08] LABS: Band Neutrophils 6 % (0-10); Lymphocytes 6 % (20-55); Metamyelocytes 1 %; Segmented Neutrophils 83 % (50-85); Total Cells Counted 100
[2018-01-07 02:09] LABS: Anisocytosis 1+; Polychromasia Slight
[2018-01-07] MEDS: metroNIDAZOLE INJ 500 MG in PREMIX 1 EACH IV SCH ×4 (03:06→21:29)
[2018-01-07] MEDS: SODIUM CHLORIDE 0.9% 1,000 ML IV SCH ×2 (03:19→13:39)
[2018-01-07] MEDS: ALBUTEROL/IPRATROPIUM 3 ML NEB RESP TX SCH ×3 (07:21→19:09)
[2018-01-07 09:21] LABS: Hematocrit 25.5 VOL% (42.0-52.0); Hemoglobin 8.6 GM/DL (14.0-18.0)
[2018-01-07] MEDS: PANTOPRAZOLE 40 MG VIAL IV SCH ×2 (09:35→21:32)
[2018-01-07] MEDS: predniSONE 10 MG TABLET PO SCH ×2 (10:27→21:20)
[2018-01-07] MEDS: SPIRONOLACTONE 25 MG TABLET PO SCH (10:27)
[2018-01-07] MEDS: METOPROLOL SUCCINATE XL 50 MG TABLET PO SCH (10:27)
[2018-01-07] MEDS: VANCOMYCIN INJ 1,000 MG in SODIUM CHLORIDE 0.9% 250 ML IV SCH (10:44)
[2018-01-07] MEDS ORDERED: SODIUM CHLORIDE 0.9% 1,000 ML IV PRN ×2 (11:14→12:08)
[2018-01-07] MEDS ORDERED: FUROSEMIDE 40 MG/4 ML VIAL IV ONE (11:15)
[2018-01-07 12:38] LABS: Hematocrit 22.9 VOL% (42.0-52.0); Hemoglobin 7.6 GM/DL (14.0-18.0)
[2018-01-07] MEDS: HYDROCORTISONE 100 MG VIAL IV SCH ×2 (13:36→22:00)
[2018-01-07] MEDS: SODIUM CHLOR 0.9% KCL 40 MEQ 40 MEQ/1,000 ML BAG IV SCH ×2 (13:38→21:30)
[2018-01-07] MEDS: DIGOXIN 0.125 MG TABLET PO SCH (13:59)
[2018-01-08] MEDS: VANCOMYCIN 50 MG/ML 60 ML/BOTTLE PO SCH ×5 (00:45→23:22)
[2018-01-08] MEDS: metroNIDAZOLE INJ 500 MG in PREMIX 1 EACH IV SCH ×4 (05:03→21:17)
[2018-01-08] MEDS: HYDROCORTISONE 100 MG VIAL IV SCH ×3 (05:03→21:13)
[2018-01-08 05:39] LABS: Calcium 7.9 MG/DL (8.5-10.1); Osmolality,Calculated 288.6 MOS/KG (273-304); Potassium 3.5 MMOL/L (3.5-5.1)
[2018-01-08] MEDS ORDERED: METOCLOPRAMIDE 10 MG/2 ML VIAL IV ONE (06:00)
[2018-01-08 06:50] LABS: Basophils % 0.1 % (0.0-0.8); Eosinophils # 0.1 10*3/uL (0.0-0.87); Eosinophils % 0.4 % (0.00-10.9); Hematocrit 31.1 VOL% (42.0-52.0); Immature Granulocytes % 0.9 %; Immature Granulocytes Absolute 0.14 #; Lymphocytes # 1.4 10*3/uL (1.4-4.0); Lymphocytes % 9.1 % (21.2-54.2); Mean Corpuscular HGB Conc 33.8 GM/DL (32-36); Mean Corpuscular Hemoglobin 27 PG (27-34); Mean Corpuscular Volume 80.4 FL (87-102); Mean Platelet Volume 10.7 FL (9.6-12.0); Monocytes # 0.9 10*3/uL (0.11-0.8); Monocytes % 5.9 % (1.7-12.7); NRBC # 0.02 10*3/uL; Neutrophils # 12.4 10*3/uL (1.4-7.4); Neutrophils % 83.6 % (38.7-73.9); Platelet Count 218 T/CUMM (130-400); Red Blood Count 3.87 MC/CUMM (3.8-5.5); Red Cell Distribution Width 18.8 % (9.3-17.3); White Blood Count 14.9 T/CUMM (4-12)
[2018-01-08 07:00] LABS: Hemoglobin 10.5 GM/DL (14.0-18.0)
[2018-01-08] MEDS: ALBUTEROL/IPRATROPIUM 3 ML NEB RESP TX SCH ×2 (07:25→19:40)
[2018-01-08] MEDS: SPIRONOLACTONE 25 MG TABLET PO SCH (08:13)
[2018-01-08] MEDS: SODIUM CHLOR 0.9% KCL 40 MEQ 40 MEQ/1,000 ML BAG IV SCH ×3 (08:13→23:20)
[2018-01-08] MEDS: METOPROLOL SUCCINATE XL 50 MG TABLET PO SCH (08:14)
[2018-01-08] MEDS: predniSONE 10 MG TABLET PO SCH ×2 (08:14→21:11)
[2018-01-08] MEDS: PANTOPRAZOLE 40 MG VIAL IV SCH ×2 (09:24→21:11)
[2018-01-08] MEDS: DIGOXIN 0.125 MG TABLET PO SCH (14:36)
[2018-01-08] MEDS: SKIN HEALING OINT (AQUAPHOR) 50 GM TUBE TOP SCH ×2 (18:41→21:15)
[2018-01-09] MEDS: HYDROCORTISONE 100 MG VIAL IV SCH ×3 (03:23→21:04)
[2018-01-09] MEDS: metroNIDAZOLE INJ 500 MG in PREMIX 1 EACH IV SCH ×4 (03:23→21:05)
[2018-01-09] MEDS: VANCOMYCIN 50 MG/ML 60 ML/BOTTLE PO SCH ×4 (05:48→23:18)
[2018-01-09 07:43] LABS: Calcium 8.5 MG/DL (8.5-10.1); Osmolality,Calculated 288.6 MOS/KG (273-304); Potassium 4.2 MMOL/L (3.5-5.1)
[2018-01-09] MEDS: ALBUTEROL/IPRATROPIUM 3 ML NEB RESP TX SCH ×2 (07:43→18:50)
[2018-01-09] MEDS: SODIUM CHLOR 0.9% KCL 40 MEQ 40 MEQ/1,000 ML BAG IV SCH ×3 (07:54→23:08)
[2018-01-09] MEDS: SPIRONOLACTONE 25 MG TABLET PO SCH (10:06)
[2018-01-09] MEDS: METOPROLOL SUCCINATE XL 50 MG TABLET PO SCH (10:07)
[2018-01-09] MEDS: predniSONE 10 MG TABLET PO SCH ×2 (10:07→21:04)
[2018-01-09] MEDS: PANTOPRAZOLE 40 MG VIAL IV SCH ×2 (10:08→21:01)
[2018-01-09] MEDS: DIGOXIN 0.125 MG TABLET PO SCH (12:26)
[2018-01-09] MEDS: SKIN HEALING OINT (AQUAPHOR) 50 GM TUBE TOP SCH ×2 (16:29→21:29)
[2018-01-10] MEDS: HYDROCORTISONE 100 MG VIAL IV SCH ×3 (03:56→20:00)
[2018-01-10] MEDS: metroNIDAZOLE INJ 500 MG in PREMIX 1 EACH IV SCH ×4 (03:59→21:00)
[2018-01-10] MEDS ORDERED: ASPIRIN CHEW 81 MG TABLET PO ONE ×2 (04:18→04:30)
[2018-01-10] MEDS ORDERED: MORPHINE 2 MG/1 ML SYRINGE IV PRN (04:30)
[2018-01-10] MEDS ORDERED: MORPHINE 2 MG/1 ML SYRINGE ONE (04:31)
[2018-01-10 04:32] LABS: Basophils % 0.1 % (0.0-0.8); Hemoglobin 10.6 GM/DL (14.0-18.0); Immature Granulocytes % 0.9 %; Immature Granulocytes Absolute 0.17 #; Lymphocytes # 1.2 10*3/uL (1.4-4.0); Lymphocytes % 6.8 % (21.2-54.2); Mean Corpuscular HGB Conc 32.1 GM/DL (32-36); Mean Corpuscular Hemoglobin 27 PG (27-34); Mean Corpuscular Volume 82.9 FL (87-102); Mean Platelet Volume 10.4 FL (9.6-12.0); Monocytes # 0.7 10*3/uL (0.11-0.8); NRBC # 0.03 10*3/uL; Neutrophils # 16.1 10*3/uL (1.4-7.4); Neutrophils % 88.2 % (38.7-73.9); Platelet Count 179 T/CUMM (130-400); Red Blood Count 3.98 MC/CUMM (3.8-5.5); Red Cell Distribution Width 19.6 % (9.3-17.3); White Blood Count 18.3 T/CUMM (4-12)
[2018-01-10 05:06] LABS: Alanine Aminotransferase 38 U/L (16-61); Albumin 1.9 G/DL (3.4-5.0); Alkaline Phosphatase 54 U/L (45-117); Aspartate Amino Transferase 24 U/L (0-37); Bilirubin,Total < 0.39 MG/DL (0.2-1.0); Blood Urea Nitrogen 12 MG/DL (7-18); Calcium 8.4 MG/DL (8.5-10.1); Glucose 120 MG/DL (74-106); Osmolality,Calculated 286.8 MOS/KG (273-304); Potassium 4.5 MMOL/L (3.5-5.1); Sodium 144 MMOL/L (136-145)
[2018-01-10] MEDS: VANCOMYCIN 50 MG/ML 60 ML/BOTTLE PO SCH ×3 (05:07→18:10)
[2018-01-10] MEDS: SODIUM CHLOR 0.9% KCL 40 MEQ 40 MEQ/1,000 ML BAG IV SCH ×2 (07:29→09:30)
[2018-01-10] MEDS: ALBUTEROL/IPRATROPIUM 3 ML NEB RESP TX SCH ×2 (07:50→19:49)
[2018-01-10] MEDS ORDERED: MAGNESIUM SULF RIDER 2 GM in PREMIX 1 EACH IV ONE (07:59)
[2018-01-10] MEDS: PANTOPRAZOLE 40 MG VIAL IV SCH ×2 (09:27→21:00)
[2018-01-10] MEDS: SKIN HEALING OINT (AQUAPHOR) 50 GM TUBE TOP SCH ×2 (09:30→22:47)
[2018-01-10] MEDS: predniSONE 10 MG TABLET PO SCH ×2 (09:32→22:47)
[2018-01-10] MEDS: SPIRONOLACTONE 25 MG TABLET PO SCH (09:32)
[2018-01-10] MEDS: METOPROLOL SUCCINATE XL 50 MG TABLET PO SCH (09:33)
[2018-01-10] MEDS: DIGOXIN 0.125 MG TABLET PO SCH (11:00)
[2018-01-10] MEDS ORDERED: LIDOCAINE 2% 5 ML VIAL ONE (12:25)
[2018-01-10] MEDS ORDERED: PROPOFOL 200 MG/20 ML VIAL IV ONE (12:25)
[2018-01-11] MEDS: metroNIDAZOLE INJ 500 MG in PREMIX 1 EACH IV SCH ×2 (02:09→09:00)
[2018-01-11] MEDS: SODIUM CHLOR 0.9% KCL 40 MEQ 40 MEQ/1,000 ML BAG IV SCH ×4 (02:09→22:14)
[2018-01-11] MEDS: HYDROCORTISONE 100 MG VIAL IV SCH (05:09)
[2018-01-11] MEDS: ALBUTEROL/IPRATROPIUM 3 ML NEB RESP TX SCH ×2 (07:27→19:18)
[2018-01-11] MEDS: SKIN HEALING OINT (AQUAPHOR) 50 GM TUBE TOP SCH ×2 (08:29→22:13)
[2018-01-11] MEDS: predniSONE 10 MG TABLET PO SCH ×2 (08:33→22:13)
[2018-01-11] MEDS: METOPROLOL SUCCINATE XL 50 MG TABLET PO SCH (08:33)
[2018-01-11] MEDS: SPIRONOLACTONE 25 MG TABLET PO SCH (08:33)
[2018-01-11] MEDS: VANCOMYCIN 50 MG/ML 60 ML/BOTTLE PO SCH ×5 (08:48→23:53)
[2018-01-11] MEDS: PANTOPRAZOLE 40 MG VIAL IV SCH (09:00)
[2018-01-11] MEDS: DIGOXIN 0.125 MG TABLET PO SCH (11:30)
[2018-01-11] MEDS ORDERED: MAGNESIUM SULF RIDER 2 GM in PREMIX 1 EACH IV ONE (23:04)
[2018-01-12] MEDS ORDERED: MAGNESIUM CHLORIDE 64 MG TABLET PO ONE (04:00)
[2018-01-12 05:12] LABS: Basophils % 0.1 % (0.0-0.8); Eosinophils % 0.1 % (0.00-10.9); Hematocrit 27.7 VOL% (42.0-52.0); Hemoglobin 9.2 GM/DL (14.0-18.0); Immature Granulocytes % 0.7 %; Lymphocytes # 1.5 10*3/uL (1.4-4.0); Lymphocytes % 11.1 % (21.2-54.2); Mean Corpuscular HGB Conc 33.2 GM/DL (32-36); Mean Corpuscular Hemoglobin 27 PG (27-34); Mean Platelet Volume 10.9 FL (9.6-12.0); Monocytes # 0.7 10*3/uL (0.11-0.8); Monocytes % 5.3 % (1.7-12.7); Neutrophils # 11.2 10*3/uL (1.4-7.4); Neutrophils % 82.7 % (38.7-73.9); Platelet Count 131 T/CUMM (130-400); Red Blood Count 3.42 MC/CUMM (3.8-5.5); Red Cell Distribution Width 20.1 % (9.3-17.3); White Blood Count 13.5 T/CUMM (4-12)
[2018-01-12 05:43] LABS: Calcium 8.5 MG/DL (8.5-10.1); Osmolality,Calculated 286.8 MOS/KG (273-304); Potassium 4.1 MMOL/L (3.5-5.1)
[2018-01-12] MEDS: VANCOMYCIN 50 MG/ML 60 ML/BOTTLE PO SCH ×2 (05:50→12:42)
[2018-01-12] MEDS: SODIUM CHLOR 0.9% KCL 40 MEQ 40 MEQ/1,000 ML BAG IV SCH ×2 (05:52→13:38)
[2018-01-12] MEDS: ALBUTEROL/IPRATROPIUM 3 ML NEB RESP TX SCH (07:05)
[2018-01-12] MEDS: METOPROLOL SUCCINATE XL 50 MG TABLET PO SCH (09:15)
[2018-01-12] MEDS: predniSONE 10 MG TABLET PO SCH (09:15)
[2018-01-12] MEDS: SKIN HEALING OINT (AQUAPHOR) 50 GM TUBE TOP SCH (09:15)
[2018-01-12] MEDS: SPIRONOLACTONE 25 MG TABLET PO SCH (09:15)
[2018-01-12 11:31] VITALS: BP 90/50
[2018-01-12] MEDS: DIGOXIN 0.125 MG TABLET PO SCH (13:02)
== END 2018-01-12 17:46 | DRG 371 ==
LOC: EDUNIT# → EDBD → N.ED 09:58 → N.EDINP 14:25 → N.5E 15:20 → N.3E 15:51
PROVIDERS: ADMIT Internal Medicine; ATTEND Internal Medicine